=== PATIENT | female | born 1955 | race African-American/Black ===

== ENCOUNTER 2017-05-19 14:49 | Emergency (ER) | payer OTHER ==
[2017-05-19 15:14] VITALS: BMI 38.0
--- NOTE | 2017-05-19 15:17 | PDOC ---
History of Present Illness - General Chief Complaint: Back Pain Stated Complaint: BACK PAIN Time Seen by Provider: 05/19/17 15:16 Past History - Past Medical History Allergies/Adverse Reactions: Allergies Allergy/AdvReac Type Severity Reaction Status Date / Time No Known Drug Allergies Allergy Verified 05/19/17 15:13 Home Medications: Ambulatory Orders Budesonide/Formoterol Fumarate [Symbicort 80-4.5 Mcg Inhaler] 2 puff IH BID PRN #1 07/13/14 Losartan Potassium [Cozaar -] 50 mg PO DAILY 08/21/14 Lansoprazole [Prevacid] 30 mg PO ASDIR 10/04/15 Hydrocodone/Acetaminophen [Hydrocodon-Acetaminoph 7.5-325] 1 each PO Q6H #40 tablet MDD 4 03/14/16 Anemia: No Asthma: Yes Cancer: No Cardiac Disorders: No CVA: No COPD: No CHF: No Dementia: No Diabetes: Yes GI Disorders: Yes (GERD REFLUX,COLON POLYPS.H/O H.PYLORI,NON ULCER DYSPEPSIA, SENSITIVE ESOPHAG) Disorders: No HTN: Yes Hypercholesterolemia: No Liver Disease: No Seizures: No Thyroid Disease: No - Surgical History Abdominal Surgery: No Appendectomy: No Cardiac Surgery: No Cholecystectomy: No Lung Surgery: No Neurologic Surgery: Yes (SPINAL SURGERY) Orthopedic Surgery: Yes (SHOULDER SURGERY) - Immunization History Immunization Up to Date: Yes - Suicide/Smoking/Psychosocial Hx Smoking Status: No Smoking History: Never smoked Have you smoked in the past 12 months: No Number of Cigarettes Smoked Daily: 0 Cigars Per Day: 0 Information on smoking cessation initiated: No Hx Alcohol Use: No Drug/Substance Use Hx: No Substance Use Type: None Hx Substance Use Treatment: No *Physical Exam - Vital Signs Last Vital Signs Temp Pulse Resp BP Pulse Ox 97.9 F 87 18 134/79 100 05/19/17 14:49 05/19/17 14:49 05/19/17 14:49 05/19/17 14:49 05/19/17 14:49 *DC/Admit/Observation/Transfer - Referrals - Patient Instructions - Post Discharge Activity - Attestations Physician Attestion: 05/19/17 15:17 I, Dr. David Rich, attest that this document has been prepared under my direction and personally reviewed by me in its entirety. I further attest, that it accurately reflects all work, treatment, procedures and medical decision -making performed by me.
[2017-05-19] MEDS ORDERED: KETOROLAC TROMETHAMINE 60 MG/2 ML VIAL IM ONE (15:37)
--- NOTE | 2017-05-19 15:49 | PDOC ---
History of Present Illness - General Chief Complaint: Back Pain Stated Complaint: BACK PAIN Time Seen by Provider: 05/19/17 15:16 History Source: Patient - History of Present Illness Timing/Duration: 1 hour Severity: severe Associated Symptoms: denies: headaches, nausea/vomiting, weakness Past History - Past Medical History Allergies/Adverse Reactions: Allergies Allergy/AdvReac Type Severity Reaction Status Date / Time No Known Drug Allergies Allergy Verified 05/19/17 15:13 Home Medications: Ambulatory Orders Losartan Potassium [Cozaar -] 50 mg PO DAILY 08/21/14 Lansoprazole [Prevacid] 30 mg PO ASDIR 10/04/15 Cyclobenzaprine HCl [Flexeril -] 10 mg PO TID #9 tablet 05/19/17 Ibuprofen [Motrin -] 800 mg PO Q6H #30 tablet 05/19/17 Lidocaine 5% Patch [Lidoderm Patch -] 1 patch TP DAILY #7 patch 05/19/17 Anemia: No Asthma: Yes Cancer: No Cardiac Disorders: No CVA: No COPD: No CHF: No Dementia: No Diabetes: Yes GI Disorders: Yes (GERD REFLUX,COLON POLYPS.H/O H.PYLORI,NON ULCER DYSPEPSIA, SENSITIVE ESOPHAG) Disorders: No HTN: Yes Hypercholesterolemia: No Liver Disease: No Seizures: No Thyroid Disease: No - Surgical History Abdominal Surgery: No Appendectomy: No Cardiac Surgery: No Cholecystectomy: No Lung Surgery: No Neurologic Surgery: Yes (SPINAL SURGERY) Orthopedic Surgery: Yes (SHOULDER SURGERY) - Immunization History Immunization Up to Date: Yes - Suicide/Smoking/Psychosocial Hx Smoking Status: No Smoking History: Never smoked Have you smoked in the past 12 months: No Number of Cigarettes Smoked Daily: 0 Cigars Per Day: 0 Information on smoking cessation initiated: No Hx Alcohol Use: No Drug/Substance Use Hx: No Substance Use Type: None Hx Substance Use Treatment: No Review of Systems - Review of Systems Constitutional: No: Chills, Fever Musculoskeletal: Yes: Neck Pain Neurological: No: Headache, Numbness, Tingling, Weakness *Physical Exam - Vital Signs Last Vital Signs Temp Pulse Resp BP Pulse Ox 97.9 F 87 18 134/79 100 05/19/17 14:49 05/19/17 14:49 05/19/17 14:49 05/19/17 14:49 05/19/17 14:49 - Physical Exam General Appearance: Yes: Appropriately Dressed, Severe Distress HEENT: positive: Normal Voice Neck: positive: Tender (along L trapezius, pain to site w/ ROM of neck and L shoulder), Supple Respiratory/Chest: negative: Respiratory Distress Integumentary: positive: Dry, Warm Neurologic: positive: Fully Oriented, Alert, Normal Mood/Affect, Motor Strength 10/12 ED Treatment Course - RADIOLOGY Radiology Studies Ordered: Category Date Time Status SPINE-CERVICAL [RAD] Stat Radiology 05/19/17 15:37 Ordered Medical Decision Making - Medical Decision Making 05/19/17 15:38 62-year-old status post cervical surgery for herniated discs 9 months ago while in [place], here with severe neck pain. 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 States pain worse with movement of her head and neck. No upper extremity sensory changes, or weakness. Denies TALLEY, dizziness, blurry vision, n/v or focal weakness See exam M/l neck strain/spasm No red flags at this time, i.e neuropathy or dissection -pain control -XR -reassess 05/19/17 16:37 Hardware intact on XR. will continue to manage pt's pain 05/19/17 18:02 Patient reports improvement in pain. Will discharge with pain control and PMD f /u 05/19/17 18:06 *DC/Admit/Observation/Transfer Diagnosis at time of Disposition: Neck strain Qualifiers: Encounter type: initial encounter Qualified Code(s): S16.1XXA - Strain of muscle, fascia and tendon at neck level, initial encounter - Discharge Dispostion Disposition: HOME Condition at time of disposition: Improved - Prescriptions Prescriptions: Cyclobenzaprine HCl [Flexeril -] 10 mg PO TID #9 tablet Ibuprofen [Motrin -] 800 mg PO Q6H #30 tablet Lidocaine 5% Patch [Lidoderm Patch -] 1 patch TP DAILY #7 patch - Referrals Referrals: Evans Stone MD [Primary Care Provider] - - Patient Instructions Printed Discharge Instructions: DI for Neck Sprain Additional Instructions: Take medications as prescribed. If symptoms persist, follow-up with your doctor - Post Discharge Activity Forms/Work/School Notes: Back to Work
[2017-05-19] MEDS ORDERED: KETOROLAC TROMETHAMINE 60 MG/2 ML VIAL ONE (16:07)
[2017-05-19] MEDS ORDERED: CYCLOBENZAPRINE HCL 10 MG TABLET (FP) ONE (16:07)
[2017-05-19] MEDS ORDERED: CYCLOBENZAPRINE HCL 10 MG TABLET (FP) PO ONE (16:20)
[2017-05-19] MEDS ORDERED: LIDOCAINE 5% TOPICAL PATCH TP ONE (16:36)
[2017-05-19] MEDS ORDERED: LIDOCAINE 5% TOPICAL PATCH ONE (17:17)
[2017-05-19 18:23] VITALS: BP 116/73; PULSE 70; TEMP 97.8
[2017-05-20] MEDS ORDERED: CYCLOBENZAPRINE HCL 5 MG TABLET PO ONE (15:37)
== END 2017-05-19 18:23 | disposition home or self-care (01) ==
LOC: JER 14:49
PROC: 3E0233Z Introduction of Anti-inflammatory into Muscle, Percutaneous Approach (ICD-10-PCS; principal; 2017-05-19)
DX: S16.1XXA Strain of muscle, fascia and tendon at neck level, initial encounter (principal); X58.XXXA Exposure to other specified factors, initial encounter; Y93.89 Activity, other specified; Y92.9 Unspecified place or not applicable
CPT/HCPCS: 72050-TC; 99282-25

== ENCOUNTER 2017-05-21 08:33 | Day surgery (SDC) | payer OTHER ==
[2017-05-20 14:51] VITALS: BMI 38.9
[2017-05-21 09:42] VITALS: TEMP 97.5
[2017-05-21 11:01] VITALS: BP 138/71; PULSE 51
--- NOTE | 2017-05-22 16:59 | PATH ---
Surgical Pathology Report Patient Name: SHRUTHI HUBER [facility]. Rec. #: [id number] /Age/Gender: 1955 (Age: 62) / F Account: [id number] Location: U-ENDOSCOPY Taken: 05/21/2017 Received: 05/21/2017 Reported: 05/22/2017 Physicians: Jhon Blanca M.D. Specimen(s) Received BX ANTRUM Clinical History Preoperative diagnosis: Upper GI and abdominal discomfort Postoperative diagnosis: Normal EGD, normal colon Final Diagnosis STOMACH, ANTRUM, BIOPSY: GASTRIC ANTRAL MUCOSA WITH MILD CHRONIC GASTRITIS. IMMUNOHISTOCHEMICAL STAIN FOR H. PYLORI IS NEGATIVE. Electronically Signed Toshia Beard M.D. Gross Description Received in formalin, labeled "biopsy antrum" are 2 baig, irregular portions of soft tissue averaging 0.5 cm. in greatest dimension. The specimens are submitted in toto in one cassette. 05/21/201705/21/2017
== END 2017-05-21 12:31 | disposition home or self-care (01) ==
LOC: JASU-ENDO 08:33
PROVIDERS: ATTEND Internal Medicine Gastroenterology
PROC: 0DB68ZX Excision of Stomach, Via Natural or Artificial Opening Endoscopic, Diagnostic (ICD-10-PCS; 2017-05-21)
PROC: 0DJD8ZZ Inspection of Lower Intestinal Tract, Via Natural or Artificial Opening Endoscopic (ICD-10-PCS; principal; 2017-05-21 10:15)
DX: Z12.11 Encounter for screening for malignant neoplasm of colon (principal); K29.50 Unspecified chronic gastritis without bleeding
CPT/HCPCS: 43239; G0121; 88305-TC; 88342-TC

== ENCOUNTER 2017-06-28 08:00 | Inpatient (IN) | payer OTHER ==
[2017-08-02 09:45] VITALS: BMI 31.6
[2017-08-05] MEDS ORDERED: LIDOCAINE 1%/EPI 1:100000 (20 ML MULTI DOSE VIAL) ONE (07:24)
[2017-08-05] MEDS ORDERED: GENTAMICIN SO4 80 MG/2 ML VIAL ONE (07:24)
[2017-08-05] MEDS ORDERED: VANCOMYCIN 1,000 MG VIAL (RESTRICTED TO ID ONLY) ONE ×2 (07:24→08:27)
[2017-08-05] MEDS ORDERED: THROMBIN (BOVINE) 20,000 UNIT VIAL TP ONE (07:25)
[2017-08-05] MEDS ORDERED: BUPIVACAINE HCL/PF 0.5% (5MG/ML) 10 ML VIAL ONE (07:25)
[2017-08-05] MEDS ORDERED: BACITRACIN 15 GM TUBE TOPICAL OINTMENT ONE (07:26)
[2017-08-05] MEDS ORDERED: ROCURONIUM BROMIDE 50 MG/5 ML VIAL ONE ×2 (08:02→08:58)
[2017-08-05] MEDS ORDERED: MIDAZOLAM HCL 2 MG/2 ML SINGLE DOSE VIAL ONE (08:02)
[2017-08-05] MEDS ORDERED: PROPOFOL 20 ML ONE (08:02)
[2017-08-05] MEDS ORDERED: LIDOCAINE HCL/PF 2% SDV 5ML VIAL ONE (08:03)
[2017-08-05] MEDS ORDERED: DESFLURANE GAS 240 ML BOTTLE IH ONE (08:06)
[2017-08-05] MEDS ORDERED: ceFAZolin SODIUM 1 GM VIAL ONE (08:24)
[2017-08-05] MEDS ORDERED: ceFAZolin SODIUM 1 GM VIAL IVPB ONE (08:24)
[2017-08-05] MEDS ORDERED: SODIUM CHLORIDE 0.9% P/F 10 ML VIAL IJ ONE ×2 (08:24→08:27)
[2017-08-05] MEDS ORDERED: VANCOMYCIN 1,000 MG VIAL (RESTRICTED TO ID ONLY) IVPB ONE (08:30)
[2017-08-05] MEDS ORDERED: DEXAMETHASONE SOD PHOSPHATE 4 MG/1 ML VIAL ONE (08:41)
[2017-08-05] MEDS ORDERED: LIDOCAINE 1%/EPI 1:100000 (20 ML MULTI DOSE VIAL) IJ ONE (08:44)
[2017-08-05] MEDS ORDERED: THROMBIN (BOVINE) 5,000 UNIT VIAL TP ONE (09:55)
[2017-08-05] MEDS ORDERED: GELATIN, ABSORBABLE 100 EACH SPONGE TP ONE (09:56)
[2017-08-05] MEDS ORDERED: BACITRACIN 50,000 UNITS VIAL NR ONE (09:56)
[2017-08-05] MEDS ORDERED: GLYCOPYRROLATE 0.2 MG/1 ML VIAL ONE ×2 (10:08→10:48)
[2017-08-05] MEDS ORDERED: NEOSTIGMINE METHYLSULFATE 0.5 MG/ML - 10 ML MDV ONE (10:08)
[2017-08-05] MEDS ORDERED: BUPIVACAINE HCL/PF 0.5% (5MG/ML) 10 ML VIAL IJ ONE (10:20)
[2017-08-05] MEDS ORDERED: PROMETHAZINE HCL 25 MG/1 ML VIAL IVPB PRN (11:03)
[2017-08-05] MEDS ORDERED: DEXAMETHASONE SOD PHOSPHATE 4 MG/1 ML VIAL IVPUSH ONE (11:03)
[2017-08-05] MEDS ORDERED: ONDANSETRON 4 MG/2 ML VIAL IVPUSH PRN ×2 (11:03→11:13)
[2017-08-05] MEDS ORDERED: HYDROmorphone *PCA* 6MG/30ML DISP.SYRIN PCA ONE ×2 (11:09→11:10)
[2017-08-05] MEDS ORDERED: HYDROmorphone *PCA* 6MG/30ML DISP.SYRIN PCA SCH (11:15)
[2017-08-05] MEDS ORDERED: LACTATED RINGERS SOLUTION 1,000 ML IV SCH ×2 (11:15)
--- NOTE | 2017-08-05 13:36 | HP ---
Admitting History and Physical - Admission History of Present Illness: CHIEF COMPLAINT: 62 y/o afebrile female with PMH lumbar spine slipped disc, as well as cervical spine slipped disc c/o left arm and neck pain for 2 months. HISTORY OF PRESENT ILLNESS: The patient had an accident at work over 2 months ago, had an MRI of her cervical spine which revealed a slipped disc in the cervical spine with nerve impingement on the left side. She states she is currently trying to set up a surgery date with her insurance but in the meantime is in a lot of pain and is only taking motrin currently. She denies any new injury. She does report some tingling to her left hand. She is not driving home. patient took flexeril and motrin and made to follow up with PILAR- and discharged from ER she came in today for surgery seen in pacu s/p C4- T1 decompresion fusion History Source: Medical Record - Past Medical History Cardiovascular: Yes: HTN. No: AFIB, CAD, CHF, Hyperlipdemia ...LMP: 05/26/11 - Smoking History Smoking history: Never smoked Have you smoked in the past 12 months: No Aproximately how many cigarettes per day: 0 - Alcohol/Substance Use Hx Alcohol Use: No Home Medications - Allergies Allergies/Adverse Reactions: Allergies Allergy/AdvReac Type Severity Reaction Status Date / Time No Known Drug Allergies Allergy Verified 07/27/17 13:08 - Home Medications Home Medications: Ambulatory Orders Losartan Potassium [Cozaar -] 50 mg PO DAILY 08/21/14 Cyclobenzaprine HCl [Flexeril -] 10 mg PO TID PRN 08/02/17 Omeprazole Magnesium [Prilosec Otc] 20 mg PO PRN PRN 08/02/17 Family Disease History - Family Disease History Family Disease History: Heart Disease: Father Review of Systems - Review of Systems Constitutional: reports: Other (just got out of OR sedated) Physical Examination Vital Signs: Vital Signs Temperature 97.7 F 08/05/17 10:53 Pulse Rate 60 08/05/17 11:55 Respiratory Rate 16 08/05/17 11:55 Blood Pressure 136/74 08/05/17 11:55 O2 Sat by Pulse Oximetry (%) 99 08/05/17 11:55 Constitutional: Yes: Calm, Other (patient sleepy) Neck: Yes: Other (neck collar) Cardiovascular: Yes: Regular Rate and Rhythm, S1, S2 Respiratory: Yes: CTA Bilaterally Gastrointestinal: Yes: Normal Bowel Sounds, Soft Extremities: Yes: Other (scd) Problem List - Problems (1) Cervical radiculopathy Assessment/Plan: s/p c4 -t1 decompression fusion in pacu ct scan ordered shoe dresser pain pump zofran iv abx dvt ppx Code(s): M54.12 - RADICULOPATHY, CERVICAL REGION (2) HTN (hypertension) Assessment/Plan: losartan check bmp Code(s): I10 - ESSENTIAL (PRIMARY) HYPERTENSION
--- NOTE | 2017-08-05 16:22 | OP ---
Operative Note - Note: Operative Date: 08/05/17 Pre-Operative Diagnosis: cervical myelopathy, traumatic disc herniation Operation: C4-T1 laminectomies with rastafari of lordosis and reconstruction using mass lateral pedicle screws Post-Operative Diagnosis: Same as Pre-op Surgeon: Jonas Morton Real Estate Listing Consultant: Ximena Mcguire Anesthesiologist/SYSTEM ADMINISTRATION MANAGER: Stanford Chapman Anesthesia: General Estimated Blood Loss (mls): 400 Drains & Tubes with Location: j/p at c-spine Fluid Volume Replaced (mls): 900 Operative Report Dictated: Yes
--- NOTE | 2017-08-05 16:24 | SURG ---
Surgery Armature Straightener Note Armature Straightener: Ximena Mcguire PA-C Date of Service: 08/05/17 Diagnosis: cervical myelopathy with traumatic disc herniation Procedure: C4-T1 laminectomies with congregation of lordosis and reconstruction using mass lateral pedicle screws I was present for the entirety of the operative procedure. For further detail, please refer to operative report. Visit type - Case Type Case Type: Scheduled Admission - Emergency Emergency Visit: No - New patient This patient is new to me today: Yes Date on this admission: 08/05/17
[2017-08-05] MEDS ORDERED: CEFAZOLIN 1 GM/D5W 1 GM/50 ML BAG IVPB SCH (16:30)
[2017-08-05] MEDS ORDERED: CEFAZOLIN 1 GM PUSH 1 GM/10 ML DISP.SYRIN IVPUSH SCH (18:13)
[2017-08-05] MEDS: CEFAZOLIN 1 GM PUSH 1 GM/10 ML DISP.SYRIN IVPUSH SCH (18:22)
[2017-08-05] MEDS: HEPARIN NA (PORCINE) 5,000 UNITS/ML 1ML VIAL SQ SCH (18:22)
[2017-08-06] MEDS: CEFAZOLIN 1 GM PUSH 1 GM/10 ML DISP.SYRIN IVPUSH SCH ×2 (02:03→12:30)
[2017-08-06] MEDS: HEPARIN NA (PORCINE) 5,000 UNITS/ML 1ML VIAL SQ SCH ×3 (02:04→18:18)
[2017-08-06 07:57] LABS: HEMOGLOBIN 11.7 GM/dL (10.7-15.3); LYMPH % 20.8 % (8-40); MCH 29.2 pg (25.7-33.7); MCHC 33.5 g/dl (32.0-36.0); MEAN CELL VOLUME 87.1 fl (80-96); MEAN PLT VOLUME 8.5 fl (7.5-11.1); MONO % 7.8 % (3.8-10.2); NEUT % 70.4 % (42.8-82.8); PLATELET COUNT 217 K/MM3 (134-434); RBC 4.02 M/mm3 (3.60-5.2); RDW 14.4 % (11.6-15.6); WHITE BLOOD COUNT 10.3 K/mm3 (4.0-10.0)
[2017-08-06] MEDS: morphine SULFATE 4 MG/ML VIAL IVPUSH PRN ×2 (09:06→14:16)
--- NOTE | 2017-08-06 09:43 | PN ---
Progress Note, Physician - Current Medication List Current Medications: Active Medications Cyclobenzaprine HCl (Flexeril -) 10 mg PO TID PRN PRN Reason: MUSCLE SPASMS Fentanyl (Sublimaze Injection -) 50 mcg IVPUSH [id number] PRN PRN Reason: PAIN-PACU ORDER X 4 DOSES ONLY Heparin Sodium (Porcine) (Heparin -) 5,000 unit SQ Q8H-IV [place] Last Admin: 08/06/17 02:04 Dose: 5,000 unit Cefazolin Sodium (Ancef -) 1 gm in 10 mls @ 100 mls/hr IVPUSH Q8H-IV [place] Last Admin: 08/06/17 02:03 Dose: 100 mls/hr Losartan Potassium (Cozaar -) 50 mg PO DAILY [facility] Morphine Sulfate (Morphine Sulfate) 2 mg IVPUSH Q4H PRN PRN Reason: PAIN LEVEL 6-10 Last Admin: 08/06/17 09:06 Dose: 2 mg Ondansetron HCl (Zofran Injection) 4 mg IVPUSH Q4H PRN PRN Reason: NAUSEA AND/OR VOMITING Ondansetron HCl (Zofran Injection) 4 mg IVPUSH Q6H PRN PRN Reason: NAUSEA AND/OR VOMITING Promethazine HCl (Phenergan Injection -) 12.5 mg IVPB Q6H PRN PRN Reason: NAUSEA AND/OR VOMITING - Objective Vital Signs: Vital Signs Temperature 99.2 F 08/06/17 06:00 Pulse Rate 85 08/06/17 06:00 Respiratory Rate 20 08/06/17 06:00 Blood Pressure 134/73 08/06/17 06:00 O2 Sat by Pulse Oximetry (%) 100 08/05/17 15:25 Labs: CBC, BMP 08/06/17 06:30 Problem List - Problems (1) Cervical radiculopathy Assessment/Plan: s/p c4 -t1 decompression fusion ct scan ordered dc garage door installer pain pump start morphine add flexeril zofran iv abx dvt ppx Code(s): M54.12 - RADICULOPATHY, CERVICAL REGION (2) Abnormal EKG Assessment/Plan: repeat Code(s): R94.31 - ABNORMAL ELECTROCARDIOGRAM [ECG] [EKG] (3) HTN (hypertension) Assessment/Plan: monitor on cozaar Code(s): I10 - ESSENTIAL (PRIMARY) HYPERTENSION
--- NOTE | 2017-08-06 10:21 | PN ---
Progress Note, Physician Chief Complaint: day #1 s/p lumbar surgery - Current Medication List Current Medications: Active Medications Cyclobenzaprine HCl (Flexeril -) 10 mg PO TID PRN PRN Reason: MUSCLE SPASMS Docusate Sodium (Colace -) 300 mg PO HS [place] Fentanyl (Sublimaze Injection -) 50 mcg IVPUSH [id number] PRN PRN Reason: PAIN-PACU ORDER X 4 DOSES ONLY Heparin Sodium (Porcine) (Heparin -) 5,000 unit SQ Q8H-IV [place] Last Admin: 08/06/17 02:04 Dose: 5,000 unit Cefazolin Sodium (Ancef -) 1 gm in 10 mls @ 100 mls/hr IVPUSH Q8H-IV [place] Last Admin: 08/06/17 02:03 Dose: 100 mls/hr Losartan Potassium (Cozaar -) 50 mg PO DAILY [facility] Morphine Sulfate (Morphine Sulfate) 2 mg IVPUSH Q4H PRN PRN Reason: PAIN LEVEL 6-10 Last Admin: 08/06/17 09:06 Dose: 2 mg Ondansetron HCl (Zofran Injection) 4 mg IVPUSH Q4H PRN PRN Reason: NAUSEA AND/OR VOMITING Ondansetron HCl (Zofran Injection) 4 mg IVPUSH Q6H PRN PRN Reason: NAUSEA AND/OR VOMITING Promethazine HCl (Phenergan Injection -) 12.5 mg IVPB Q6H PRN PRN Reason: NAUSEA AND/OR VOMITING - Objective Vital Signs: Vital Signs Temperature 99.2 F 08/06/17 06:00 Pulse Rate 85 08/06/17 06:00 Respiratory Rate 20 08/06/17 06:00 Blood Pressure 134/73 08/06/17 06:00 O2 Sat by Pulse Oximetry (%) 100 08/05/17 15:25 Labs: CBC, BMP 08/06/17 06:30 Assessment/Plan Doing well - resting comfortably. Pain well controllled with CEMENT RAILROAD CAR LOADER- no anesthetic issues
--- NOTE | 2017-08-06 11:28 | EKG ---
Test Reason : Blood Pressure : / mmHG Vent. Rate : 062 BPM Atrial Rate : 062 BPM P-R Int : 142 ms QRS Dur : 078 ms QT Int : 354 ms P-R-T Axes : 058 009 023 degrees QTc Int : 359 ms NORMAL SINUS RHYTHM WITH SINUS ARRHYTHMIA NORMAL ECG WHEN COMPARED WITH ECG OF 31-JUL-2017 12:54, NO SIGNIFICANT CHANGE WAS FOUND Confirmed by MD Wes, Brendan ([id number]) on 08/06/2017 11:28:00 AM Referred By: Jonas Morton Confirmed By:Brendan Harvey MD
[2017-08-06] MEDS: CYCLOBENZAPRINE HCL 10 MG TABLET (FP) PO PRN (11:47)
[2017-08-06] MEDS: LOSARTAN POTASSIUM 50 MG TABLET (FP) PO SCH (11:51)
[2017-08-06] MEDS ORDERED: cefTRIAXone SODIUM 1 GM VIAL IM ONE (14:45)
[2017-08-06] MEDS: oxyCODONE HCL 5 MG TABLET PO PRN ×2 (15:35→22:48)
[2017-08-06] MEDS: DOCUSATE SODIUM 100 MG CAPSULE (FP) PO SCH (22:48)
[2017-08-07] MEDS: HEPARIN NA (PORCINE) 5,000 UNITS/ML 1ML VIAL SQ SCH ×3 (02:38→17:47)
[2017-08-07] MEDS: oxyCODONE HCL 5 MG TABLET PO PRN ×5 (03:13→21:35)
--- NOTE | 2017-08-07 08:07 | PN ---
Progress Note, Physician - Current Medication List Current Medications: Active Medications Cyclobenzaprine HCl (Flexeril -) 10 mg PO TID PRN PRN Reason: MUSCLE SPASMS Last Admin: 08/06/17 11:47 Dose: 10 mg Docusate Sodium (Colace -) 300 mg PO HS [facility] Last Admin: 08/06/17 22:48 Dose: 300 mg Fentanyl (Sublimaze Injection -) 50 mcg IVPUSH [id number] PRN PRN Reason: PAIN-PACU ORDER X 4 DOSES ONLY Heparin Sodium (Porcine) (Heparin -) 5,000 unit SQ Q8H-IV [facility] Last Admin: 08/07/17 02:38 Dose: 5,000 unit Losartan Potassium (Cozaar -) 50 mg PO DAILY [facility] Last Admin: 08/06/17 11:51 Dose: 50 mg Morphine Sulfate (Morphine Sulfate) 2 mg IVPUSH Q4H PRN PRN Reason: PAIN LEVEL 6-10 Last Admin: 08/06/17 14:16 Dose: 2 mg Ondansetron HCl (Zofran Injection) 4 mg IVPUSH Q4H PRN PRN Reason: NAUSEA AND/OR VOMITING Ondansetron HCl (Zofran Injection) 4 mg IVPUSH Q6H PRN PRN Reason: NAUSEA AND/OR VOMITING Oxycodone HCl (Roxicodone -) 10 mg PO Q4H PRN PRN Reason: PAIN LEVEL 1-5 Last Admin: 08/07/17 03:13 Dose: 10 mg Promethazine HCl (Phenergan Injection -) 12.5 mg IVPB Q6H PRN PRN Reason: NAUSEA AND/OR VOMITING - Objective Vital Signs: Vital Signs Temperature 99.3 F 08/07/17 06:00 Pulse Rate 104 H 08/07/17 06:00 Respiratory Rate 20 08/07/17 06:00 Blood Pressure 145/85 08/07/17 06:00 O2 Sat by Pulse Oximetry (%) 100 08/06/17 21:00 Cardiovascular: Yes: Regular Rate and Rhythm Respiratory: Yes: Regular, CTA Bilaterally Gastrointestinal: Yes: Normal Bowel Sounds, Soft Labs: CBC, BMP 08/06/17 06:30 Problem List - Problems (1) Cervical radiculopathy Assessment/Plan: s/p c4 -t1 decompression fusion ct scan ordered dc associate dean of students pain pump OXYCODONE add flexeril zofran OFF BAX dvt ppx PT--SNF --D/W PT Code(s): M54.12 - RADICULOPATHY, CERVICAL REGION (2) Abnormal EKG Assessment/Plan: repeat NSR Code(s): R94.31 - ABNORMAL ELECTROCARDIOGRAM [ECG] [EKG] (3) HTN (hypertension) Assessment/Plan: monitor on cozaar Code(s): I10 - ESSENTIAL (PRIMARY) HYPERTENSION Assessment/Plan PT--SNF--AGREES WITH ANGELES
--- NOTE | 2017-08-07 09:05 | PN ---
Progress Note (short form) - Note Progress Note: Patient making slow recovery after revision Cervical fusion Patient with episode of urination in bed. Ambulated briefly yesterday ALEJO output reducing PLAN d/c ALEJO pain control OOB with PT will consider discharge to rehab once medically stable
--- NOTE | 2017-08-07 09:50 | PN ---
Progress Note (short form) - Note Progress Note: Pain management HAND TWISTER discontinued over night. No complaints. Pain controlled with oral analgesics. Dept of anesthesiology will sign off care at this time.
[2017-08-07] MEDS: LOSARTAN POTASSIUM 50 MG TABLET (FP) PO SCH (10:07)
--- NOTE | 2017-08-07 11:28 | PROC ---
Procedure Note Procedure: Surgery POD #[address] Morton to d/c j/p drain. J/p drain removed with tip fully intact and 10 cc or Serosanginous d/c in bulb. Drain site clean and dry with no active d/c. Pressure dressing applied to area. posterior dressing at midline over incision, c/d/i with no d/c, surrounding tissue intact and no tracking erythema, Patient tolerated procedure well.
[2017-08-07] MEDS: ACETAMINOPHEN 325 MG TABLET (FP) PO PRN (17:45)
[2017-08-07] MEDS: DOCUSATE SODIUM 100 MG CAPSULE (FP) PO SCH (21:36)
[2017-08-08] MEDS: CYCLOBENZAPRINE HCL 10 MG TABLET (FP) PO PRN ×3 (00:50→21:02)
[2017-08-08] MEDS: ACETAMINOPHEN 325 MG TABLET (FP) PO PRN ×2 (02:17→21:02)
[2017-08-08] MEDS: oxyCODONE HCL 5 MG TABLET PO PRN ×4 (02:18→21:03)
[2017-08-08] MEDS: HEPARIN NA (PORCINE) 5,000 UNITS/ML 1ML VIAL SQ SCH ×3 (02:18→19:10)
[2017-08-08 06:44] LABS: BASO % 0.6 % (0-2.0); EOS % 1.9 % (0-4.5); HEMATOCRIT 34.2 % (32.4-45.2); LYMPH % 24.1 % (8-40); MCH 30.4 pg (25.7-33.7); MCHC 34.9 g/dl (32.0-36.0); MEAN CELL VOLUME 87.1 fl (80-96); MEAN PLT VOLUME 8.4 fl (7.5-11.1); MONO % 11.4 % (3.8-10.2); PLATELET COUNT 214 K/MM3 (134-434); RBC 3.93 M/mm3 (3.60-5.2); RDW 14.2 % (11.6-15.6); WHITE BLOOD COUNT 9.4 K/mm3 (4.0-10.0)
[2017-08-08 07:18] LABS: ALBUMIN 2.7 g/dl (3.4-5.0); ANION GAP 10 (8-16); BLOOD UREA NITROGEN 10 mg/dL (7-18); CALCIUM 8.5 mg/dL (8.5-10.1); CHLORIDE 99 mmol/L (98-107); CO2 28 mmol/L (21-32); CREATININE 0.7 mg/dL (0.55-1.02); GLUCOSE,RANDOM 105 mg/dL (74-106); POTASSIUM 3.9 mmol/L (3.5-5.1); SGOT/AST 24 U/L (15-37); SGPT/ALT 19 U/L (12-78); SODIUM 137 mmol/L (136-145)
[2017-08-08 07:19] LABS: ALK PHOS 78 U/L (45-117); BILIRUBIN,TOTAL 0.7 mg/dL (0.2-1.0); TOT PROT 6.6 g/dl (6.4-8.2)
--- NOTE | 2017-08-08 08:55 | PN ---
Progress Note, Physician - Current Medication List Current Medications: Active Medications Acetaminophen (Tylenol -) 650 mg PO Q6H PRN PRN Reason: FEVER Last Admin: 08/08/17 02:17 Dose: 650 mg Cyclobenzaprine HCl (Flexeril -) 10 mg PO TID PRN PRN Reason: MUSCLE SPASMS Last Admin: 08/08/17 00:50 Dose: 10 mg Docusate Sodium (Colace -) 300 mg PO HS [facility] Last Admin: 08/07/17 21:36 Dose: 300 mg Heparin Sodium (Porcine) (Heparin -) 5,000 unit SQ Q8H-IV [facility] Last Admin: 08/08/17 02:18 Dose: 5,000 unit Losartan Potassium (Cozaar -) 50 mg PO DAILY [facility] Last Admin: 08/07/17 10:07 Dose: 50 mg Ondansetron HCl (Zofran Injection) 4 mg IVPUSH Q4H PRN PRN Reason: NAUSEA AND/OR VOMITING Ondansetron HCl (Zofran Injection) 4 mg IVPUSH Q6H PRN PRN Reason: NAUSEA AND/OR VOMITING Oxycodone HCl (Roxicodone -) 5 mg PO Q4H PRN PRN Reason: PAIN LEVEL 6-10 Last Admin: 08/08/17 08:40 Dose: 5 mg Promethazine HCl (Phenergan Injection -) 12.5 mg IVPB Q6H PRN PRN Reason: NAUSEA AND/OR VOMITING - Objective Vital Signs: Vital Signs Temperature 99.8 F H 08/08/17 06:00 Pulse Rate 115 H 08/08/17 06:00 Respiratory Rate 20 08/08/17 06:00 Blood Pressure 129/75 08/08/17 06:00 O2 Sat by Pulse Oximetry (%) 100 08/07/17 21:00 Cardiovascular: Yes: Tachycardia, S1, S2 Respiratory: Yes: Regular, CTA Bilaterally Gastrointestinal: Yes: Normal Bowel Sounds, Soft. 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 -tachycardia now -echo -cardio -d-dimer -duplex prolonged qt -meds reviewed -cardio Code(s): R94.31 - ABNORMAL ELECTROCARDIOGRAM [ECG] [EKG] (3) HTN (hypertension) Assessment/Plan: monitor on cozaar Code(s): I10 - ESSENTIAL (PRIMARY) HYPERTENSION
[2017-08-08] MEDS: LOSARTAN POTASSIUM 50 MG TABLET (FP) PO SCH (11:21)
--- NOTE | 2017-08-08 11:39 | EKG ---
Test Reason : Blood Pressure : / mmHG Vent. Rate : 095 BPM Atrial Rate : 095 BPM P-R Int : 128 ms QRS Dur : 070 ms QT Int : 346 ms P-R-T Axes : 054 -04 016 degrees QTc Int : 434 ms NORMAL SINUS RHYTHM MODERATE VOLTAGE CRITERIA FOR LVH, MAY BE NORMAL VARIANT INFERIOR INFARCT , AGE UNDETERMINED ABNORMAL ECG WHEN COMPARED WITH ECG OF 06-AUG-2017 09:51, VENT. RATE HAS INCREASED BY 33 BPM INFERIOR INFARCT IS NOW PRESENT QT HAS LENGTHENED Confirmed by JOSE WALDEN MD ([id number]) on 08/08/2017 11:38:36 AM Referred By: Jonas Morton Confirmed By:JOSE WALDEN MD
--- NOTE | 2017-08-08 13:30 | PN ---
Progress Note, Physician Chief Complaint: ID Day 2 post op "Pain" cervical collar - Current Medication List Current Medications: Active Medications Acetaminophen (Tylenol -) 650 mg PO Q6H PRN PRN Reason: FEVER Last Admin: 08/08/17 02:17 Dose: 650 mg Cyclobenzaprine HCl (Flexeril -) 10 mg PO TID PRN PRN Reason: MUSCLE SPASMS Last Admin: 08/08/17 00:50 Dose: 10 mg Docusate Sodium (Colace -) 300 mg PO HS [facility] Last Admin: 08/07/17 21:36 Dose: 300 mg Heparin Sodium (Porcine) (Heparin -) 5,000 unit SQ Q8H-IV [facility] Last Admin: 08/08/17 11:21 Dose: 5,000 unit Losartan Potassium (Cozaar -) 50 mg PO DAILY [facility] Last Admin: 08/08/17 11:21 Dose: 50 mg Oxycodone HCl (Roxicodone -) 5 mg PO Q4H PRN PRN Reason: PAIN LEVEL 6-10 Last Admin: 08/08/17 08:40 Dose: 5 mg - Objective Vital Signs: Vital Signs Temperature 98.6 F 08/08/17 10:00 Pulse Rate 84 08/08/17 11:53 Respiratory Rate 18 08/08/17 10:00 Blood Pressure 121/68 08/08/17 10:00 O2 Sat by Pulse Oximetry (%) 100 08/07/17 21:00 Cardiovascular: Yes: S1, S2 Respiratory: Yes: WNL, Regular, CTA Bilaterally Labs: CBC, BMP 08/08/17 06:15 08/08/17 06:15 Problem List - Problems (1) Postoperative fever Code(s): R50.82 - POSTPROCEDURAL FEVER Assessment/Plan Microbiology Laboratory Tests 08/08/17 08/08/17 06:15 06:15 WBC 9.4 Hgb 12.0 Plt Count 214 BUN 10 Creatinine 0.7 Assessment Atalectasis with fever post op Plan Cultures pending Appears stable / No antibiotics Yariel TEJADA
--- NOTE | 2017-08-08 14:37 | EKG ---
Test Reason : Blood Pressure : / mmHG Vent. Rate : 092 BPM Atrial Rate : 092 BPM P-R Int : 130 ms QRS Dur : 082 ms QT Int : 360 ms P-R-T Axes : 058 -07 010 degrees QTc Int : 445 ms NORMAL SINUS RHYTHM MODERATE VOLTAGE CRITERIA FOR LVH, MAY BE NORMAL VARIANT INFERIOR INFARCT (CITED ON OR BEFORE 08-AUG-2017) ABNORMAL ECG WHEN COMPARED WITH ECG OF 08-AUG-2017 09:38, NO SIGNIFICANT CHANGE WAS FOUND Confirmed by JOSE WALDEN MD ([id number]) on 08/08/2017 2:37:13 PM Referred By: Jonas Morton Confirmed By:JOSE WALDEN MD
[2017-08-08 14:41] LABS: URINE APPEARANCE CLOUDY; URINE BILIRUBIN NEGATIVE (NEGATIVE); URINE BLOOD NEGATIVE (NEGATIVE); URINE COLOR AMBER; URINE GLUCOSE (UA) NEGATIVE (NEGATIVE); URINE KETONE NEGATIVE (NEGATIVE); URINE NITRITE NEGATIVE (NEGATIVE); URINE UROBILINOGEN NEGATIVE mg/dL (0.2-1.0)
[2017-08-08 14:46] LABS: URINE LEUK ESTERASE 2+ (NEGATIVE); URINE PROTEIN 1+ (NEGATIVE)
--- NOTE | 2017-08-08 15:25 | CON.CARD ---
Consult Consult Specialty:: Cardiology Reason for Consultation:: Cardiology Consult - History of Present Illness Chief Complaint: No cardiac symptoms at this time History of Present Illness: This is a 62 year old female with a PMH of lumbar and cervical slipped discs. She is S/P C4-T1 laminectomies performed on 08/05/17. She denies cardiac symptoms at this time. EKG - 08/08/17 NSR at 92 BPM with normal intervals, normal axis, and NSSTTW changes. Inferior Q-waves noted (seen prior) Troponin negative Echocardiogram 08/08/17 - Normal LV size and function. Normal RV size nd function. Trace TR. - Past Medical History Cardio/Vascular: Yes: HTN. No: AFIB, CAD, CHF, Hyperlipdemia ...LMP: 05/26/11 - Alcohol/Substance Use Hx Alcohol Use: No - Smoking History Smoking history: Never smoked Have you smoked in the past 12 months: No Aproximately how many cigarettes per day: 0 Home Medications - Allergies Allergies/Adverse Reactions: Allergies Allergy/AdvReac Type Severity Reaction Status Date / Time No Known Drug Allergies Allergy Verified 07/27/17 13:08 - Home Medications Home Medications: Ambulatory Orders Losartan Potassium [Cozaar -] 50 mg PO DAILY 08/21/14 Cyclobenzaprine HCl [Flexeril -] 10 mg PO TID PRN 08/02/17 Omeprazole Magnesium [Prilosec Otc] 20 mg PO PRN PRN 08/02/17 Family Disease History - Family Disease History Family Disease History: Heart Disease: Father Review of Systems Findings/Remarks: As per HPI Vital Signs: Vital Signs Temperature 98.3 F 08/08/17 14:37 Pulse Rate 86 08/08/17 14:37 Respiratory Rate 18 08/08/17 14:37 Blood Pressure 97/62 08/08/17 14:37 O2 Sat by Pulse Oximetry (%) 100 08/07/17 21:00 Constitutional: Yes: No Distress (Neck collar) HENT: Yes: WNL Respiratory: Yes: CTA Bilaterally Gastrointestinal: Yes: Soft Cardiovascular: Yes: Regular Rate and Rhythm (NL S1S2, no MRG) Extremities: Yes: WNL Edema: No Neurological: Yes: Alert, Oriented (Non focal) - Other Data Labs, Other Data: CBC, BMP 08/08/17 06:15 08/08/17 06:15 Troponin, BNP 08/08/17 08/08/17 06:15 13:00 Troponin I < 0.02 < 0.02 Troponin, BNP 08/08/17 08/08/17 06:15 13:00 Troponin I < 0.02 < 0.02 Assessment/Plan Cardiovascular: S/P C4-T1 laminectomies performed on 08/05/17. She denies cardiac symptoms at this time. EKG - 08/08/17 NSR at 92 BPM with normal intervals, normal axis, and NSSTTW changes. Inferior Q-waves noted (seen prior) Troponin negative Echocardiogram 08/08/17 - Normal LV size and function. Normal RV size nd function. Trace TR. Presently stable from a cardiac standpoint.
[2017-08-08 15:42] LABS: EPI CELLS MANY /HPF (FEW); URINE MUCUS MANY
[2017-08-08] MEDS: DOCUSATE SODIUM 100 MG CAPSULE (FP) PO SCH (21:04)
[2017-08-09] MEDS: HEPARIN NA (PORCINE) 5,000 UNITS/ML 1ML VIAL SQ SCH ×4 (00:30→19:59)
--- NOTE | 2017-08-09 07:59 | PN ---
Progress Note, Physician Chief Complaint: ID Post op pain noted Afebrile Temps down Off antibiotics - Current Medication List Current Medications: Active Medications Acetaminophen (Tylenol -) 650 mg PO Q6H PRN PRN Reason: FEVER Last Admin: 08/08/17 21:02 Dose: 650 mg Cyclobenzaprine HCl (Flexeril -) 10 mg PO TID PRN PRN Reason: MUSCLE SPASMS Last Admin: 08/08/17 21:02 Dose: 10 mg Docusate Sodium (Colace -) 300 mg PO HS [facility] Last Admin: 08/08/17 21:04 Dose: 300 mg Heparin Sodium (Porcine) (Heparin -) 5,000 unit SQ Q8H-IV [facility] Last Admin: 08/09/17 02:00 Dose: 5,000 unit Losartan Potassium (Cozaar -) 50 mg PO DAILY [facility] Last Admin: 08/08/17 11:21 Dose: 50 mg Oxycodone HCl (Roxicodone -) 5 mg PO Q4H PRN PRN Reason: PAIN LEVEL 6-10 Last Admin: 08/08/17 21:03 Dose: 5 mg - Objective Vital Signs: Vital Signs Temperature 98.4 F 08/09/17 06:00 Pulse Rate 88 08/09/17 06:00 Respiratory Rate 18 08/09/17 06:00 Blood Pressure 97/52 08/09/17 06:00 O2 Sat by Pulse Oximetry (%) 98 08/08/17 21:00 Constitutional: Yes: No Distress Neck: Yes: Other (Collar) Cardiovascular: Yes: Regular Rate and Rhythm, S1, S2. No: Murmur Respiratory: Yes: WNL, Regular, CTA Bilaterally. No: Rales, Rhonchi Gastrointestinal: Yes: Soft. No: Tenderness Labs: CBC, BMP 08/08/17 06:15 08/08/17 06:15 Problem List - Problems (1) Postoperative fever Code(s): R50.82 - POSTPROCEDURAL FEVER Assessment/Plan Microbiology 08/08/17 03:45 Blood - Peripheral Venous Blood Culture - Preliminary NO GROWTH OBTAINED AFTER 24 HOURS, INCUBATION TO CONTINUE FOR 4 DAYS. 08/08/17 03:45 Blood - Peripheral Venous Blood Culture - Preliminary NO GROWTH OBTAINED AFTER 24 HOURS, INCUBATION TO CONTINUE FOR 4 DAYS. Laboratory Tests 08/08/17 06:15 WBC 9.4 Hgb 12.0 Plt Count 214 Assessment Day 4 post op spinal surgery Fever down from atalectasis seen on chest xray I gave no antibiotics Plan Discharge planning Recall as needed Yariel TEJADA
[2017-08-09] MEDS: oxyCODONE HCL 5 MG TABLET PO PRN ×2 (08:09→16:25)
[2017-08-09] MEDS: CYCLOBENZAPRINE HCL 10 MG TABLET (FP) PO PRN (11:01)
[2017-08-09] MEDS: LOSARTAN POTASSIUM 50 MG TABLET (FP) PO SCH (11:01)
--- NOTE | 2017-08-09 11:02 | CONS ---
DATE OF CONSULTATION: HISTORY: This is a 62-year-old female whom I am asked to see postoperative spinal cervical surgery for evaluation of fevers. She was electively admitted for surgery and on August 05 was taken to the operating room with preoperative diagnosis of cervical myelopathy and traumatic disk herniation. The surgery, as per the operative note, C4-T1 laminectomies with reconstruction using mass lateral pedicle screws. The following day, the patient developed fever and by earlier this morning had reached 101.9. Two sets of blood cultures were drawn and currently pending. A urinalysis has not yet been collected. Chest x-ray showed prominent atelectasis in the left lung base. The patient denies any shortness of breath, and her lung O2 saturations are normal. She has no pleuritic chest pain, abdominal pain, or urinary complaints. ALLERGIES: She has no known allergies. CURRENT MEDICATIONS: Include Cozaar for hypertension, Flexeril, Roxicodone. REVIEW OF SYSTEMS: All systems reviewed and noncontributory. PHYSICAL EXAMINATION: Vital Signs: She is in no acute distress with temperature currently 98.6, pulse 84, blood pressure 128/68, respirations 18. Neck: With a cervical collar. Lungs: Clear. Heart: S1, S2. Tachycardic. Regular rhythm. Abdomen: Soft and nontender. Extremities: Without clubbing, cyanosis, or edema. A white count is 9.4, hemoglobin 12, platelets 214 with a normal differential. Chemistries within normal limits. ASSESSMENT: A 62-year-old female day 2 postoperative extensive cervical surgery with laminectomies and placement of spinal hardware. Immediate postoperative fever on day 1 intermittent with no signs of indication of sepsis including a normal white count. Blood cultures have been sent. At this point, she is clinically stable. Her fever most likely due to lung atelectasis. PLAN: Would encourage incentive spirometry. Send a urinalysis and urine culture along with the blood cultures and observe her off of antibiotic at this time. PILAR TAMAYO M.D. [id number]
--- NOTE | 2017-08-09 11:15 | PN ---
Progress Note (short form) - Note Progress Note: Surgery POD #4 C4-T1 laminectomies with sikh of lordosis and posterior fusion Patient seen and examined at bedside c/o pain over incision site and left UE paresthesias which she had pre-operatively but has intensified during the post op course. She is tolerating her diet and has mild nausea but no vomiting. She is voiding and passing gas but no BM yet. She denies any subjective fevers today , CP, SOB or headaches. Shew has been ambulating with assistance and OOB to chair. The patient went for Chest CT this morning to r/o PE as she had an elevated D-dimer and recent fevers. Vital Signs Temp 98.4 F 0318 06:00 Pulse 88 08/09/17 06:00 Resp 18 08/09/17 06:00 BP 97/52 18 06:00 Pulse Ox 98 08/08/17 21:00 Intake & Output 03/18 18 08/09/17 11:59 23:59 11:59 Other: Voiding Method Bedpan Toilet # Unmeasured Voids Void 2 Bowel Movement No CBC, BMP 08/08/17 06:15 08/08/17 06:[address] revealed: B/l lower lobe, lingunial and right upper lobe discoid atelectasis No evidence of PE PE: A&Ox3, NAD unlabored resp on RA neck incision, C/D/I with jose m insitu and dermabond. Surrounding tissue with no evidence of erythema, edema, collection or fluctuance. drain site healing well with no d/c. Left UE patient unable to cooperate with exam 2/2 pain. Weak on hand payroll lead which appears to be pain blocking Right UE with 5/5 payroll lead strength B/l LE compartments, soft, supple and non-tender with +2 pedal pulses and 5/5 dorsi/plantar flexion Problem List - Problems (1) Cervical radiculopathy Assessment/Plan: POD # 4 multilevel cervical fusion with post op fevers POD #3 and elevated d- dimer and creatine Kinase Cardiology consult states patient is stable from cardiac standpoint and Chest CT revealed stable atelectasis with no evidence of PE. Patient currently afebrile. Plan: 1) OOB with PT 2) continue DVT prophylaxis with scds and sq heparin 3) C-collar 23hours/day 4) d/c planning Code(s): M54.12 - RADICULOPATHY, CERVICAL REGION
--- NOTE | 2017-08-09 11:26 | DS ---
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 She states she is currently trying to set up a surgery date with her insurance but in the meantime is in a lot of pain and is only taking motrin currently. She denies any new injury. She does report some tingling to her left hand. She is not driving home. patient took flexeril and motrin and made to follow up with [facility]- and discharged from ER she came in today for surgery seen in pacu s/p C4- T1 decompresion fusion History Source: Medical Record - Past Medical History Cardiovascular: Yes: HTN. 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 -tachycardia now -echo -cardio -d-dimer high--duplex and cta neg -duplex neg -prolonged qt -meds reviewed -cardio noted Code(s): R94.31 - ABNORMAL ELECTROCARDIOGRAM [ECG] [EKG] (3) HTN (hypertension) Assessment/Plan: monitor on coar Code(s): I10 - ESSENTIAL (PRIMARY) HYPERTENSION - Instructions Diet, Activity, Other Instructions: Dr. Morton's Discharge Instructions Post Operative Instructions Physical activity Resume your normal everyday activity as tolerated no heavy lifting or exercise until seen by your surgeon. You may walk unlimited amounts of and climb stairs. You may resume driving the car when you feel safe and comfortable behind the wheel and you are no longer wearing your brace. Do not operate a vehicle while taking narcotic medication. Wound care If you have a bandage, leave it on, and keep dry for 48 - 72 hours. After that time discard the outer bandage. If there are tapes on the skin under the outer bandage, leave them in place. They will peel off in the next 7 to 10 days. Do Not peel them off. You may shower 2 days after surgery however, do not submerge the incision. If there are tapes present on the skin, they can get wet. Diet There are no dietary restrictions. Eat healthy, high-fiber foods. Drink 6 to 8 glasses of liquid each day. This will assist in keeping your bowels are regular. Pain management You may take Tylenol or acetaminophen. Any pain prescription medication ordered should be taken as prescribed for moderate to severe pain. Call Dr. Morton for any of the following: Severe pain not relieved by medication Fever of 101 or higher Excessive bleeding or drainage on dressing Inability to urinate Any chest pain or shortness of breath seek emergency care. Call the office to confirm a post operative appointment 7-10 days post op. Disposition: RETIREMENT FACILITY - Home Medications Comprehensive Discharge Medication List: Ambulatory Orders Omeprazole Magnesium [Prilosec Otc] 20 mg PO PRN PRN 08/02/17 Acetaminophen [Tylenol .Regular Strength -] 650 mg PO Q6H PRN tablet 08/09/17 Cyclobenzaprine HCl [Flexeril -] 10 mg PO TID PRN tablet 08/09/17 Docusate Sodium [Colace -] 300 mg PO HS capsule 08/09/17 Heparin - 5,000 unit SQ Q8H-IV vial 08/09/17 Losartan Potassium [Cozaar -] 50 mg PO DAILY tablet 08/09/17 oxyCODONE HCL [Roxicodone -] 5 mg PO Q4H PRN tablet MDD 4 08/09/17
[2017-08-09] MEDS: DOCUSATE SODIUM 100 MG CAPSULE (FP) PO SCH (22:25)
[2017-08-09] MEDS: CYCLOBENZAPRINE HCL 10 MG TABLET (FP) PO SCH (22:25)
[2017-08-09] MEDS: PANTOPRAZOLE 40 MG TABLET (FP) PO SCH (22:25)
[2017-08-09] MEDS: KETOROLAC TROMETHAMINE 10 MG TABLET PO SCH (22:25)
[2017-08-10] MEDS: HEPARIN NA (PORCINE) 5,000 UNITS/ML 1ML VIAL SQ SCH ×3 (02:21→17:25)
[2017-08-10] MEDS: oxyCODONE HCL 5 MG TABLET PO PRN (02:24)
[2017-08-10] MEDS: ACETAMINOPHEN 325 MG TABLET (FP) PO PRN ×2 (02:25→18:52)
[2017-08-10] MEDS: KETOROLAC TROMETHAMINE 10 MG TABLET PO SCH ×3 (05:45→22:19)
[2017-08-10] MEDS ORDERED: PT OWN MED DRAWER 7, Y5N ONE ×4 (09:56→22:18)
[2017-08-10] MEDS: CYCLOBENZAPRINE HCL 10 MG TABLET (FP) PO SCH ×2 (09:58→22:21)
[2017-08-10] MEDS: PANTOPRAZOLE 40 MG TABLET (FP) PO SCH ×3 (09:58→22:29)
[2017-08-10] MEDS: LOSARTAN POTASSIUM 50 MG TABLET (FP) PO SCH (09:58)
--- NOTE | 2017-08-10 10:54 | PN ---
Progress Note, Physician History of Present Illness: NAD afebrile seen by NS, ID and cardiology awaiting discharge to [facility] - Current Medication List Current Medications: Active Medications Acetaminophen (Tylenol -) 650 mg PO Q6H PRN PRN Reason: FEVER Last Admin: 08/10/17 02:25 Dose: 650 mg Cyclobenzaprine HCl (Flexeril -) 10 mg PO BID [facility] Last Admin: 08/10/17 09:58 Dose: 10 mg Docusate Sodium (Colace -) 300 mg PO HS [facility] Last Admin: 08/09/17 22:25 Dose: 300 mg Heparin Sodium (Porcine) (Heparin -) 5,000 unit SQ Q8H-IV [facility] Last Admin: 08/10/17 09:58 Dose: 5,000 unit Ketorolac Tromethamine (Toradol) 10 mg PO TID [facility] Stop: 08/14/17 21:59 Last Admin: 08/10/17 05:45 Dose: Not Given Losartan Potassium (Cozaar -) 50 mg PO DAILY [facility] Last Admin: 08/10/17 09:58 Dose: 50 mg Pantoprazole Sodium (Protonix -) 40 mg PO BID [facility] Last Admin: 08/10/17 09:58 Dose: 40 mg - Objective Vital Signs: Vital Signs Temperature 97.3 F L 08/10/17 06:00 Pulse Rate 72 08/10/17 06:00 Respiratory Rate 18 08/10/17 06:00 Blood Pressure 114/56 08/10/17 06:00 O2 Sat by Pulse Oximetry (%) 98 08/09/17 21:00 Constitutional: Yes: Well Nourished, No Distress, Calm Cardiovascular: Yes: Regular Rate and Rhythm Respiratory: Yes: Regular Gastrointestinal: Yes: Normal Bowel Sounds, Soft Neurological: Yes: Alert, Oriented Psychiatric: Yes: Alert, Oriented Labs: CBC, BMP 08/08/17 06:15 08/08/17 06:15 Problem List - Problems (1) Elevated d-dimer Assessment/Plan: -U/S doppler BLLE and CTA negative -on AC Code(s): R79.89 - OTHER SPECIFIED ABNORMAL FINDINGS OF BLOOD CHEMISTRY (2) Abnormal EKG Assessment/Plan: -seen by cardiology -no intervention recommended Code(s): R94.31 - ABNORMAL ELECTROCARDIOGRAM [ECG] [EKG] (3) Cervical radiculopathy Assessment/Plan: s/p c4 -t1 decompression fusion 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
--- NOTE | 2017-08-10 16:22 | PN ---
Progress Note (short form) - Note Progress Note: Patient making slow recovery from Revision Cervical Fusion. Collar in place. Patient ambulating with assistance. Dressing clean, dry and intact. Patient should be ready for Discharge to SNF from surgical standpoint. All questions answered.
[2017-08-10] MEDS: DOCUSATE SODIUM 100 MG CAPSULE (FP) PO SCH (22:19)
[2017-08-11] MEDS: HEPARIN NA (PORCINE) 5,000 UNITS/ML 1ML VIAL SQ SCH ×3 (02:10→17:40)
[2017-08-11] MEDS ORDERED: PT OWN MED DRAWER 7, Y5N ONE ×2 (06:50→21:47)
[2017-08-11] MEDS: PANTOPRAZOLE 40 MG TABLET (FP) PO SCH ×2 (09:44→21:53)
[2017-08-11] MEDS: LOSARTAN POTASSIUM 50 MG TABLET (FP) PO SCH (09:44)
[2017-08-11] MEDS: CYCLOBENZAPRINE HCL 10 MG TABLET (FP) PO SCH ×2 (09:44→21:46)
[2017-08-11] MEDS: KETOROLAC TROMETHAMINE 10 MG TABLET PO SCH ×3 (09:45→21:47)
--- NOTE | 2017-08-11 10:57 | PN ---
Progress Note (short form) - Note Progress Note: Patient resting comfortably. Reports that she was able to ambulate in [place] earlier. Pain abating. Patient is ready for discharge to rehabilitation from Neurosurgery standpoint. Skin clips can be removed after September 04 either at SNF/ Rehab or in my office.
--- NOTE | 2017-08-11 12:00 | PN ---
Progress Note, Physician History of Present Illness: NAD afebrile seen by NS, ID and cardiology awaiting discharge to [facility] - Current Medication List Current Medications: Active Medications Acetaminophen (Tylenol -) 650 mg PO Q6H PRN PRN Reason: FEVER Last Admin: 08/10/17 18:52 Dose: 650 mg Cyclobenzaprine HCl (Flexeril -) 10 mg PO BID [facility] Last Admin: 08/11/17 09:44 Dose: 10 mg Docusate Sodium (Colace -) 300 mg PO HS [facility] Last Admin: 08/10/17 22:19 Dose: 300 mg Heparin Sodium (Porcine) (Heparin -) 5,000 unit SQ Q8H-IV [facility] Last Admin: 08/11/17 09:44 Dose: 5,000 unit Ketorolac Tromethamine (Toradol) 10 mg PO TID [facility] Stop: 08/14/17 21:59 Last Admin: 08/11/17 09:45 Dose: 10 mg Losartan Potassium (Cozaar -) 50 mg PO DAILY [facility] Last Admin: 08/11/17 09:44 Dose: 50 mg Pantoprazole Sodium (Protonix -) 40 mg PO BID [facility] Last Admin: 08/11/17 09:44 Dose: 40 mg - Objective Vital Signs: Vital Signs Temperature 100.7 F H 08/11/17 08:00 Pulse Rate 98 H 08/11/17 08:00 Respiratory Rate 18 08/11/17 09:00 Blood Pressure 104/58 08/11/17 08:00 O2 Sat by Pulse Oximetry (%) 98 08/11/17 09:00 Constitutional: Yes: Well Nourished, No Distress, Calm Cardiovascular: Yes: Regular Rate and Rhythm Respiratory: Yes: Regular Gastrointestinal: Yes: Normal Bowel Sounds, Soft Neurological: Yes: Alert, Oriented Psychiatric: Yes: Alert, Oriented Labs: CBC, BMP 08/08/17 06:15 08/08/17 06:15 Problem List - Problems (1) Elevated d-dimer Assessment/Plan: -U/S doppler BLLE and CTA negative -on AC Code(s): R79.89 - OTHER SPECIFIED ABNORMAL FINDINGS OF BLOOD CHEMISTRY (2) Abnormal EKG Assessment/Plan: -seen by cardiology -no intervention recommended Code(s): R94.31 - ABNORMAL ELECTROCARDIOGRAM [ECG] [EKG] (3) Cervical radiculopathy Assessment/Plan: s/p c4 -t1 decompression fusion 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
[2017-08-11] MEDS: ACETAMINOPHEN 325 MG TABLET (FP) PO PRN (14:21)
[2017-08-11] MEDS: DOCUSATE SODIUM 100 MG CAPSULE (FP) PO SCH (21:53)
[2017-08-12] MEDS: HEPARIN NA (PORCINE) 5,000 UNITS/ML 1ML VIAL SQ SCH ×4 (02:38→23:04)
[2017-08-12] MEDS ORDERED: PT OWN MED DRAWER 7, Y5N ONE (05:26)
[2017-08-12] MEDS: KETOROLAC TROMETHAMINE 10 MG TABLET PO SCH ×3 (06:35→23:05)
[2017-08-12] MEDS: CYCLOBENZAPRINE HCL 10 MG TABLET (FP) PO SCH ×2 (10:02→23:04)
[2017-08-12] MEDS: PANTOPRAZOLE 40 MG TABLET (FP) PO SCH ×2 (10:02→23:04)
[2017-08-12] MEDS: LOSARTAN POTASSIUM 50 MG TABLET (FP) PO SCH (10:02)
--- NOTE | 2017-08-12 10:21 | DS ---
Physical Examination Vital Signs: Vital Signs Temperature 98.6 F 08/12/17 07:07 Pulse Rate 86 08/12/17 07:07 Respiratory Rate 20 08/12/17 07:07 Blood Pressure 135/75 08/12/17 07:07 O2 Sat by Pulse Oximetry (%) 98 08/11/17 21:00 Constitutional: Yes: Calm Neck: Yes: Other (neck collar) Cardiovascular: Yes: Regular Rate and Rhythm, S1, S2 Respiratory: Yes: CTA Bilaterally Gastrointestinal: Yes: Normal Bowel Sounds, Soft Edema: No Neurological: Yes: Alert, Oriented Labs: CBC, BMP 08/08/17 06:15 08/08/17 06:15 Discharge Summary Reason For Visit: CERVICAL SPONDYLOTIC MYELOPATHY/TRAUMATIC DISC HER Current Active Problems Elevated d-dimer (Acute) Postoperative fever (Acute) Hospital Course: History of Present Illness: CHIEF COMPLAINT: 62 y/o afebrile female with PMH lumbar spine slipped disc, as well as cervical spine slipped disc c/o left arm and neck pain for 2 months. HISTORY OF PRESENT ILLNESS: The patient had an accident at work over 2 months ago, had an MRI of her cervical spine which revealed a slipped disc in the cervical spine with nerve impingement on the left side. She states she is currently trying to set up a surgery date with her insurance but in the meantime is in a lot of pain and is only taking motrin currently. She denies any new injury. She does report some tingling to her left hand. She is not driving home. patient took flexeril and motrin and made to follow up with [facility]- and discharged from ER she came in today for surgery seen in pacu s/p C4- T1 decompresion fusion History Source: Medical Record - Past Medical History Cardiovascular: Yes: HTN. No: AFIB, CAD, CHF, Hyperlipdemia ...LMP: 05/26/11 - Smoking History Smoking history: Never smoked Have you smoked in the past 12 months: No Aproximately how many cigarettes per day: 0 ptient during hospital stay :had doppler of legs no evidence of DVT and CTA no evidence of PE either surgical skin clipsa can be removed after september 04 in neurosurgery office. Condition: Improved - Instructions Diet, Activity, Other Instructions: Dr. Morton's Discharge Instructions Post Operative Instructions Physical activity Resume your normal everyday activity as tolerated no heavy lifting or exercise until seen by your surgeon. You may walk unlimited amounts of and climb stairs. You may resume driving the car when you feel safe and comfortable behind the wheel and you are no longer wearing your brace. Do not operate a vehicle while taking narcotic medication. Wound care If you have a bandage, leave it on, and keep dry for 48 - 72 hours. After that time discard the outer bandage. If there are tapes on the skin under the outer bandage, leave them in place. They will peel off in the next 7 to 10 days. Do Not peel them off. You may shower 2 days after surgery however, do not submerge the incision. If there are tapes present on the skin, they can get wet. Diet There are no dietary restrictions. Eat healthy, high-fiber foods. Drink 6 to 8 glasses of liquid each day. This will assist in keeping your bowels are regular. Pain management You may take Tylenol or acetaminophen. Any pain prescription medication ordered should be taken as prescribed for moderate to severe pain. Call Dr. Morton for any of the following: Severe pain not relieved by medication Fever of 101 or higher Excessive bleeding or drainage on dressing Inability to urinate Any chest pain or shortness of breath seek emergency care. Call the office to confirm a post operative appointment 7-10 days post op. 1) OOB with PT 2) continue DVT prophylaxis with scds and sq heparin 3) C-collar 23hours/day 4) skin clips can be removed at the office after september 04 Disposition: [facility] - Home Medications Comprehensive Discharge Medication List: Ambulatory Orders Omeprazole Magnesium [Prilosec Otc] 20 mg PO PRN PRN 08/02/17 Acetaminophen [Tylenol .Regular Strength -] 650 mg PO Q6H PRN tablet 08/09/17 Cyclobenzaprine HCl [Flexeril -] 10 mg PO TID PRN tablet 08/09/17 Docusate Sodium [Colace -] 300 mg PO HS capsule 08/09/17 Heparin - 5,000 unit SQ Q8H-IV vial 08/09/17 Losartan Potassium [Cozaar -] 50 mg PO DAILY tablet 08/09/17 oxyCODONE HCL [Roxicodone -] 5 mg PO Q4H PRN tablet MDD 4 08/09/17
[2017-08-12] MEDS: POLYETHYLENE GLYCOL 3350 119 GM BTL PO SCH (12:39)
[2017-08-12] MEDS: ACETAMINOPHEN 325 MG TABLET (FP) PO PRN (18:33)
[2017-08-12] MEDS: DOCUSATE SODIUM 100 MG CAPSULE (FP) PO SCH (23:03)
[2017-08-13] MEDS: KETOROLAC TROMETHAMINE 10 MG TABLET PO SCH (06:22)
[2017-08-13] MEDS ORDERED: PT OWN MED DRAWER 7, Y5N ONE (09:15)
[2017-08-13] MEDS: PANTOPRAZOLE 40 MG TABLET (FP) PO SCH (09:16)
[2017-08-13] MEDS: CYCLOBENZAPRINE HCL 10 MG TABLET (FP) PO SCH (09:16)
[2017-08-13] MEDS: LOSARTAN POTASSIUM 50 MG TABLET (FP) PO SCH (09:16)
[2017-08-13] MEDS: HEPARIN NA (PORCINE) 5,000 UNITS/ML 1ML VIAL SQ SCH (09:16)
[2017-08-13] MEDS: POLYETHYLENE GLYCOL 3350 119 GM BTL PO SCH (09:17)
[2017-08-13] MEDS: ACETAMINOPHEN 325 MG TABLET (FP) PO PRN (09:17)
[2017-08-13 11:29] VITALS: BP 130/68; PULSE 95; TEMP 98.4
== END 2017-08-13 09:31 | DRG 321 ==
LOC: EDSTATUS 08:00 → JSAMEDAYSX 08-05 05:05 → J8W 08-05 15:07
PROVIDERS: ADMIT Family Medicine; ATTEND Neurological Surgery
PROC: 0RG1071 Fusion of Cervical Vertebral Joint with Autologous Tissue Substitute, Posterior Approach, Posterior Column, Open Approach (ICD-10-PCS; 2017-08-05)
PROC: 0JX70ZB Transfer Back Subcutaneous Tissue and Fascia with Skin and Subcutaneous Tissue, Open Approach (ICD-10-PCS; 2017-08-05)
PROC: 00BW0ZZ Excision of Cervical Spinal Cord, Open Approach (ICD-10-PCS; principal; 2017-08-05 08:00)
PROC: 0J973ZZ Drainage of Back Subcutaneous Tissue and Fascia, Percutaneous Approach (ICD-10-PCS; 2017-08-07)
DX: M50.021 Cervical disc disorder at C4-C5 level with myelopathy (principal); M40.202 Unspecified kyphosis, cervical region; M54.12 Radiculopathy, cervical region; I10 Essential (primary) hypertension; M50.023 Cervical disc disorder at C6-C7 level with myelopathy
CPT/HCPCS: 36415; 71045-TC-FY; 71275-TC; 72125-TC; 76000-TC-FY; 80053; 81003; 81015; 82550; 82553; 84443; 84484; 85025; 85379; 86850; 86900; 86901; 87040; 87086; 93005; 93010; 93306-TC; 93970-TC; 94760; 97116-GP; 97161-GP; J1170; J1644

== ENCOUNTER 2017-07-27 12:57 | Emergency (ER) | payer OTHER ==
[2017-07-27 13:14] VITALS: BP 135/81; PULSE 78; TEMP 98.1; BMI 37.8
--- NOTE | 2017-07-27 14:05 | PDOC ---
History of Present Illness - General Chief Complaint: Pain, Acute Stated Complaint: LEFT SIDE BODY PAIN Time Seen by Provider: 07/27/17 14:03 History Source: Patient Exam Limitations: No Limitations - History of Present Illness Initial Comments: CHIEF COMPLAINT: 62 y/o afebrile female with PMH lumbar spine slipped disc, as well as cervical spine slipped disc c/o left arm and neck pain for 2 months. HISTORY OF PRESENT ILLNESS: The patient had an accident at work over 2 months ago, had an MRI of her cervical spine which revealed a slipped disc in the cervical spine with nerve impingement on the left side. She states she is currently trying to set up a surgery date with her insurance but in the meantime is in a lot of pain and is only taking motrin currently. She denies any new injury. She does report some tingling to her left hand. She is not driving home. Past History - Past Medical History Allergies/Adverse Reactions: Allergies Allergy/AdvReac Type Severity Reaction Status Date / Time No Known Drug Allergies Allergy Verified 07/27/17 13:08 Home Medications: Ambulatory Orders Losartan Potassium [Cozaar -] 50 mg PO DAILY 08/21/14 Cyclobenzaprine HCl [Flexeril -] 10 mg PO TID #21 tablet 07/27/17 Anemia: No Asthma: Yes (NO RECENT ATTACK) Cancer: No Cardiac Disorders: No CVA: No COPD: No CHF: No Dementia: No Diabetes: No GI Disorders: Yes (ACID REFLUX,COLON POLYP) Disorders: No HTN: Yes Hypercholesterolemia: No Liver Disease: No Seizures: No Thyroid Disease: No - Surgical History Abdominal Surgery: No Appendectomy: No Cardiac Surgery: No Cholecystectomy: No Lung Surgery: No Neurologic Surgery: No Orthopedic Surgery: Yes (LEFT ROTATOR CUFF,RIGHT SHOULDER SURGERY) - Immunization History Immunization Up to Date: Yes - Suicide/Smoking/Psychosocial Hx Smoking Status: No Smoking History: Never smoked Have you smoked in the past 12 months: No Number of Cigarettes Smoked Daily: 0 Cigars Per Day: 0 Hx Alcohol Use: No Drug/Substance Use Hx: No Substance Use Type: None Hx Substance Use Treatment: No Review of Systems - Review of Systems Able to Perform ROS?: Yes Constitutional: No: Symptoms Reported HEENTM: No: Symptoms Reported Respiratory: No: Symptoms reported Cardiac (ROS): No: Symptoms Reported ABD/GI: No: Symptoms Reported Musculoskeletal: Yes: Back Pain, Neck Pain, Joint Stiffness (cervical spine stiffness) Neurological: Yes: Paresthesia (left hand) *Physical Exam - Vital Signs Last Vital Signs Temp Pulse Resp BP Pulse Ox 98.1 F 78 18 135/81 99 07/27/17 13:09 07/27/17 13:09 07/27/17 13:09 07/27/17 13:09 07/27/17 13:09 - Physical Exam Comments: 62 y/o female, older looking than her stated age, ambulatory to the ER, in NAD but in moderate obvious discomfort. Patient moves her entire body to turn her head. General Appearance: Yes: Nourished, Appropriately Dressed, Obese HEENT: positive: EOMI, ERICA, Normal ENT Inspection Neck: positive: Tender, Rigid, Decreased range of motion (Cervical spine is stiff), Tender lateral (Very tender left cervical paravertebral muscles with muscle spasming) Extremity: positive: Normal Capillary Refill, Normal Range of Motion Neurologic: positive: second class welder II-XII NML intact, Fully Oriented, Motor Strength 5/5 (b/l UEs.), Finger to Nose (normal). negative: Facial Droop, Numbness Medical Decision Making - Medical Decision Making A/P: 62 y/o female with cervical radiculopathy and resultant left cervical muscle spasm with torticollis. Plan is as follows: 1. IM toradol 2. PO flexeril Will discharge to home with rx for flexeril. Suggested she take along with motrin and informed her it may make her drowsy. Suggested she f/u with her neuro surgeon next week and return to the ER with any worsening or concerning symptoms. The patient verbalizes understanding of all instructions, has no further questions and is awaiting discharge. *DC/Admit/Observation/Transfer Diagnosis at time of Disposition: Cervical radiculopathy, Torticollis - Discharge Dispostion Disposition: HOME Condition at time of disposition: Good - Referrals Referrals: Evans Stone MD [Primary Care Provider] - Jonas Morton MD, FAANS [Staff Physician] - (Call saturday) Luis Manuel Bay MD [Staff Physician] - (call saturday) - Patient Instructions Printed Discharge Instructions: DI for Cervical Radiculopathy Additional Instructions: Discharge Instructions: -Continue taking Motrin every 6 hours for pain/inflammation -A prescription for a muscle relaxer has been sent to your pharmacy; please take with motrin; it may cause drowsiness -Call your neuro surgeon on saturday for follow up -Return to the ER with any worsening or concerning symptoms - Post Discharge Activity
[2017-07-27] MEDS ORDERED: KETOROLAC TROMETHAMINE 60 MG/2 ML VIAL IM ONE (14:44)
[2017-07-27] MEDS ORDERED: CYCLOBENZAPRINE HCL 5 MG TABLET PO SCH (14:45)
[2017-07-27] MEDS ORDERED: CYCLOBENZAPRINE HCL 10 MG TABLET (FP) ONE (14:46)
[2017-07-27] MEDS ORDERED: KETOROLAC TROMETHAMINE 60 MG/2 ML VIAL ONE (14:46)
== END 2017-07-27 15:12 | disposition home or self-care (01) ==
LOC: JERFT 12:57
PROC: 3E0233Z Introduction of Anti-inflammatory into Muscle, Percutaneous Approach (ICD-10-PCS; principal; 2017-07-27)
DX: M54.12 Radiculopathy, cervical region (principal); M43.6 Torticollis; I10 Essential (primary) hypertension; Z87.09 Personal history of other diseases of the respiratory system; Z87.19 Personal history of other diseases of the digestive system
CPT/HCPCS: 99281-25

== ENCOUNTER 2017-12-03 21:27 | Observation (INO) | payer OTHER ==
[2017-12-03 21:52] VITALS: BMI 36.9
--- NOTE | 2017-12-03 21:52 | PDOC ---
Rapid Medical Evaluation Time Seen by Provider: 12/03/17 21:47 Medical Evaluation: Allergies Allergy/AdvReac Type Severity Reaction Status Date / Time No Known Drug Allergies Allergy Verified 07/27/17 13:08 12/03/17 21:47 Pt presents to the ED c/o neck pain with numbness and tingling down to the L arm. Pt had cervical disc fusion by Dr. Michael mckenzie 4 months ago. Pain got worse today. States that the pain moves into her chest Exam Pt in c-collar. Able to move both extremities. No gross neuro deficits. Breathing easily Orders: EKG, CBC, CMP, Cardiac profile, Pt to proceed to ED for further evaluation Discharge Disposition - Diagnosis Neck pain on left side - Referrals - Patient Instructions - Post Discharge Activity
--- NOTE | 2017-12-04 00:43 | PDOC ---
History of Present Illness - General History Source: Patient Exam Limitations: No Limitations - History of Present Illness Initial Comments: 12/04/17 01:13 The patient is a 62 year old female with a significant PMH of hypertension and asthma who presents to the emergency department with severe neck pain. The patient describes her neck pain as persistent. The patient reports that she recently had cervical surgery with Dr. Rodriguez 4 months ago. The patient reports associated left arm numbness . the patient reports taking tylenol with no relief. The patient denies any fever, chills, nausea, vomiting, diarrhea or urinary symptoms. She denies any trauma, headache, dizziness, chest pain r SOB. the patient denies any other complaints. PCP: Dr. Stone <Al Tsai - Last Filed: 12/04/17 01:13> - General History Source: Patient <Sekou Bernabe - Last Filed: 12/04/17 02:58> - General Chief Complaint: Pain Stated Complaint: PAIN Time Seen by Provider: 12/03/17 21:47 Past History <Al Tsai - Last Filed: 12/04/17 01:13> - Past Medical History Anemia: No Asthma: Yes (NO RECENT ATTACK) COPD: No GI Disorders: Yes (ACID REFLUX,COLON POLYP) HTN: Yes - Surgical History Orthopedic Surgery: Yes (LEFT ROTATOR CUFF,RIGHT SHOULDER SURGERY) - Immunization History Immunization Up to Date: Yes - Suicide/Smoking/Psychosocial Hx Smoking Status: No Smoking History: Never smoked Have you smoked in the past 12 months: No Number of Cigarettes Smoked Daily: 0 Cigars Per Day: 0 Information on smoking cessation initiated: No Hx Alcohol Use: No Drug/Substance Use Hx: No Substance Use Type: None Hx Substance Use Treatment: No <Sekou Bernabe - Last Filed: 12/04/17 02:58> - Past Medical History Allergies/Adverse Reactions: Allergies Allergy/AdvReac Type Severity Reaction Status Date / Time No Known Drug Allergies Allergy Verified 12/03/17 21:49 Home Medications: Ambulatory Orders Omeprazole Magnesium [Prilosec Otc] 20 mg PO PRN PRN 08/02/17 Acetaminophen [Tylenol .Regular Strength -] 650 mg PO Q6H PRN tablet 08/09/17 Docusate Sodium [Colace -] 300 mg PO HS capsule 08/09/17 Heparin - 5,000 unit SQ Q8H-IV vial 08/09/17 Losartan Potassium [Cozaar -] 50 mg PO DAILY tablet 08/09/17 oxyCODONE HCL [Roxicodone -] 5 mg PO Q4H PRN tablet MDD 4 08/09/17 Cyclobenzaprine HCl [Flexeril -] 10 mg PO BID tablet 08/12/17 Ketorolac Tromethamine [Toradol -] 10 mg PO TID tablet 08/12/17 Pantoprazole Sodium [Protonix -] 40 mg PO BID tablet.ec 08/12/17 Polyethylene Glycol 3350 [Miralax 119 gm Btl -] 17 gm PO DAILY bottle 08/12/17 Review of Systems - Review of Systems Able to Perform ROS?: Yes Comments:: 12/04/17 01:13 CONSTITUTIONAL: (+) neck pain Absent: fever, chills, diaphoresis, generalized weakness, malaise, loss of appetite HEENT: Absent: rhinorrhea, nasal congestion, throat pain, throat swelling, difficulty swallowing, mouth swelling, ear pain, eye pain, visual Changes CARDIOVASCULAR: Absent: chest pain, syncope, palpitations, irregular heart rate, lightheadedness , peripheral edema RESPIRATORY: Absent: cough, shortness of breath, dyspnea with exertion, orthopnea, wheezing, stridor, hemoptysis GASTROINTESTINAL: Absent: abdominal pain, abdominal distension, nausea, vomiting, diarrhea, constipation, melena, hematochezia GENITOURINARY: Absent: dysuria, frequency, urgency, hesitancy, hematuria, flank pain, genital pain MUSCULOSKELETAL: (+)left arm numbness Absent: myalgia, arthralgia, joint swelling SKIN: Absent: rash, itching, pallor HEMATOLOGIC/IMMUNOLOGIC: Absent: easy bleeding, easy bruising, lymphadenopathy, frequent infections ENDOCRINE: Absent: unexplained weight gain, unexplained weight loss, heat intolerance, cold intolerance NEUROLOGIC: Absent: headache, focal weakness or paresthesias, dizziness, unsteady gait, seizure, mental status changes, bladder or bowel incontinence PSYCHIATRIC: Absent: anxiety, depression, suicidal or homicidal ideation, hallucinations. <Al Tsai - Last Filed: 12/04/17 01:13> *Physical Exam - Vital Signs Last Vital Signs Temp Pulse Resp BP Pulse Ox 98.0 F 64 18 156/87 99 12/03/17 21:49 12/03/17 21:49 12/03/17 21:49 12/03/17 21:49 12/03/17 21:49 - Physical Exam Comments: 12/04/17 01:14 GENERAL: Well developed, well nourished. Awake and alert. No acute distress. HEENT: Normocephalic, atraumatic. PERRLA, EOMI. No conjunctival pallor. Sclera are non- icteric. Moist mucous membranes. Oropharynx is clear. NECK: (+)tenderness bilaterally along surgical wound. Some discomfort mostly at C7T1 junction. Wound is clean, dry and intact. Supple. Full ROM. No JVD. Carotid pulses 2+ and symmetric, without bruits. No thyromegaly. No lymphadenopathy. CARDIOVASCULAR: Regular rate and rhythm. No murmurs, rubs, or gallops. Distal pulses are 2+ and symmetric. PULMONARY: No evidence of respiratory distress. Lungs clear to auscultation bilaterally. No wheezing, rales or rhonchi. ABDOMINAL: Soft. Non-tender. Non-distended. No rebound or guarding. No organomegaly. Normoactive bowel sounds. MUSCULOSKELETAL Normal range of motion at all joints. No bony deformities or tenderness. No CVA tenderness. EXTREMITIES: No cyanosis. No clubbing. No edema. No calf tenderness. SKIN: Warm and dry. Normal capillary refill. No rashes. No jaundice. NEUROLOGICAL: Alert, awake, appropriate. Cranial nerves 2-12 intact. No deficits to light touch and temperature in face, upper extremities and lower extremities. No motor deficits in the in face, upper extremities and lower extremities. Normoreflexic in the upper and lower extremities. Normal speech. Toes are down- going bilaterally. Gait is normal without ataxia. PSYCHIATRIC: Cooperative. Good eye contact. Appropriate mood and affect. <Al Tsai - Last Filed: 12/04/17 01:13> - Vital Signs Last Vital Signs Temp Pulse Resp BP Pulse Ox 98.0 F 64 18 156/87 99 12/03/17 21:49 12/03/17 21:49 12/03/17 21:49 12/03/17 21:49 12/03/17 21:49 <Sekou Bernabe - Last Filed: 12/04/17 02:58> ED Treatment Course - LABORATORY CBC & Chemistry Diagram: 12/04/17 00:56 12/04/17 00:56 <Al Tsai - Last Filed: 12/04/17 01:13> - LABORATORY CBC & Chemistry Diagram: 12/04/17 00:56 12/04/17 00:56 <Sekou Bernabe - Last Filed: 12/04/17 02:58> Medical Decision Making - Medical Decision Making 12/04/17 02:57 Dr. Bernabe: The scribe's documentation has been prepared under my direction and personally reviewed by me in its entirery. I confirm that the note above accurately reflects all work, treatment, procedures, and medical decision making performed by me. Pt still having pain despite treatment. Will admit so that pt can be seen by her pcp and her neurosurgeon <Sekou Bernabe - Last Filed: 12/04/17 02:58> *DC/Admit/Observation/Transfer - Attestations Scribe Attestion: 12/04/17 01:14 Documentation prepared by Al Tsai, acting as general medical practitioner for Sekou Bernabe MD. <Al Tsai - Last Filed: 12/04/17 01:13> - Discharge Dispostion Decision to Admit order: Yes <Sekou Bernabe - Last Filed: 12/04/17 02:58> Diagnosis at time of Disposition: Neck pain on left side, Cervical radiculopathy, Intractable pain - Discharge Dispostion Condition at time of disposition: Stable - Referrals Referrals: Evans Stone MD [Primary Care Provider] - - Patient Instructions - Post Discharge Activity
[2017-12-04] MEDS ORDERED: traMADol HCL 50 MG TABLET PO ONE (00:45)
[2017-12-04 01:08] LABS: BASO % 1.2 % (0-2.0); EOS % 4.8 % (0-4.5); HEMATOCRIT 37.3 % (32.4-45.2); HEMOGLOBIN 12.7 GM/dL (10.7-15.3); LYMPH % 48.6 % (8-40); MCH 29.2 pg (25.7-33.7); MEAN CELL VOLUME 85.7 fl (80-96); MEAN PLT VOLUME 8.3 fl (7.5-11.1); MONO % 8.9 % (3.8-10.2); NEUT % 36.5 % (42.8-82.8); PLATELET COUNT 317 K/MM3 (134-434); RBC 4.35 M/mm3 (3.60-5.2); RDW 13.4 % (11.6-15.6); WHITE BLOOD COUNT 6.8 K/mm3 (4.0-10.0)
[2017-12-04] MEDS ORDERED: traMADol HCL 50 MG TABLET ONE (01:13)
[2017-12-04 01:28] LABS: ALBUMIN 3.3 g/dl (3.4-5.0); ANION GAP 6 (8-16); BILIRUBIN,TOTAL 0.2 mg/dL (0.2-1.0); BLOOD UREA NITROGEN 15 mg/dL (7-18); CALCIUM 8.8 mg/dL (8.5-10.1); CHLORIDE 109 mmol/L (98-107); CO2 28 mmol/L (21-32); CREATININE 0.7 mg/dL (0.55-1.02); GLUCOSE,RANDOM 84 mg/dL (74-106); POTASSIUM 3.9 mmol/L (3.5-5.1); SGOT/AST 15 U/L (15-37); SGPT/ALT 18 U/L (12-78); SODIUM 143 mmol/L (136-145); TOT PROT 7.5 g/dl (6.4-8.2)
[2017-12-04 01:29] LABS: ALK PHOS 92 U/L (45-117)
[2017-12-04] MEDS ORDERED: morphine CARPU-JECT 2 MG/1 ML DISP.SYRIN IVPUSH ONE (02:53)
[2017-12-04] MEDS ORDERED: ONDANSETRON 4 MG/2 ML VIAL IVPUSH STA (02:53)
[2017-12-04] MEDS ORDERED: MORPHINE SULFATE 10 MG/1 ML *VIAL ONE (03:20)
[2017-12-04] MEDS ORDERED: ONDANSETRON 4 MG/2 ML VIAL ONE (03:20)
--- NOTE | 2017-12-04 04:05 | PN ---
Teaching Attending Note Name of Resident: Leila Landon ATTENDING PHYSICIAN STATEMENT I saw and evaluated the patient. I reviewed the resident's note and discussed the case with the resident. I agree with the resident's findings and plan as documented. SUBJECTIVE: Patient is a 62 year old woman with a significant history of hypertension, neck surgeries X 3, and asthma who presents to the emergency department with severe neck pain. The patient describes her neck pain as persistent. The patient reports that she recently had cervical surgery with Dr. Rodriguez 4 months ago. The patient reports associated left arm numbness . the patient reports taking tylenol with no relief. The patient denies any fever, chills, nausea, vomiting, diarrhea or urinary symptoms. She denies any trauma, headache, dizziness, chest pain SOB. the patient denies any other complaints. OBJECTIVE: Alert, obese and in moderate pain Vital Signs Period Temp Pulse Resp BP Sys/Champion Pulse Ox Last 24 Hr 98.0 F 64 18 156/87 99 HEENT: No Jaundice, eye redness or discharge, PERRLA, EOMI. Normocephalic, atraumatic. External ears are normal and hearing is grossly intact. No nasal discharge. Neck: Supple, nontender. No palpable adenopathy or thyromegaly. No JVD Chest: Good effort. Clear to auscultation and percussion. Heart: Regular. No S3, rub or murmur Abdomen: Not distended, soft, nontender and no HSM. No rebound or guarding. Normoactive bowel sounds. Ext: Peripheral pulses intact. Left foot edema. Point tenderness at T1 level. Skin: Warm and dry. No petechiae, rash or ecchymosis. Neuro: Alert. Oriented x3. CN 2-12 grossly intact. Reduced sensation in left arm and limited ROM of left shoulder. Home Medications Medication Instructions Recorded Omeprazole Magnesium [Prilosec Otc] 20 mg PO PRN PRN 08/02/17 Acetaminophen [Tylenol .Regular 650 mg PO Q6H PRN tablet 08/09/17 Strength -] Docusate Sodium [Colace -] 300 mg PO HS capsule 08/09/17 Heparin - 5,000 unit SQ Q8H-IV vial 08/09/17 Losartan Potassium [Cozaar -] 50 mg PO DAILY tablet 08/09/17 oxyCODONE HCL [Roxicodone -] 5 mg PO Q4H PRN tablet MDD 4 08/09/17 Cyclobenzaprine HCl [Flexeril -] 10 mg PO BID tablet 08/12/17 Ketorolac Tromethamine [Toradol -] 10 mg PO TID tablet 08/12/17 Pantoprazole Sodium [Protonix -] 40 mg PO BID tablet.ec 08/12/17 Polyethylene Glycol 3350 [Miralax 17 gm PO DAILY bottle 08/12/17 119 gm Btl -] Abnormal Lab Results 12/04/17 12/04/17 00:56 00:56 Neutrophils % 36.5 L D Lymphocytes % 48.6 H D Eosinophils % 4.8 H D Chloride 109 H Anion Gap 6 L Albumin 3.3 L ASSESSMENT AND PLAN: 1. Cervical/thoracic radiculopathy - Recent EMG showed impinged nerve at T1 level. Patient wants only tylenol for pain control . CT scan of her neck shows changes consistent with her multiple surgeries. CXR is shows no gross abnormalities. Awaiting neurosurgery consult evaluation. 2. Hypertension - Resume home medications and stress a low salt diet. Must strive for normotension. 3. Left foot edema - Etiology unclear. Will get doppler scan of her left leg. 4. DVT prophylaxis - Heparin 5000u sq tid. 5. Advance directives - Full code
--- NOTE | 2017-12-04 05:44 | HP ---
CHIEF COMPLAINT: arm pain and numbness PCP: [facility] HISTORY OF PRESENT ILLNESS: The patient is a 62 year old female with a PMH of cervical spine surgeries x 3, HTN, asthma that presented today complaining of severe pain that is present for the past 4 months (since C4-T1 laminectomy with [facility] of lordosis and posterior fusion ). She states that the pain got worse and decided to come to the hospital. It is 10/10, starts in the back of her neck, radiates to left upper extremity, to all fingers and sometimes to left lower extremity. It is intermittent, sharp in nature. The patient also reports numbness and associated burning. She tried Tylenol without improvement. The patient had EMG done by her Neurologist last week and was told that she had impinged nerve at the level of C7. For the past 4 months she reports balance problems and started using cane. She denies headache, vision problems, urinary incontinence, chest pain, SOB, fever, chills. ER course was notable for: (1)CT c spine and thoracic (2)CXR (3)CMP, CMP PAST MEDICAL HISTORY: as above PAST SURGICAL HISTORY: first anterior cervical fusion in 2007 with 2 discs removed, revision in 2016 with 3 discs removed and C4-T1 posterior fusion in 2018, two shoulder surgeries R and L side, 2011 and 2015 Social History: Smoking:never smoker Alcohol:no Drugs: no Used to work as a nurse school office assistant, currently not working. Dicorced and lives with her children. Family History: Mother; DM Father: Asthma, heart disease Sister and brother : HTN, 4 children healthy Allergies No Known Drug Allergies Allergy (Verified 12/03/17 21:49) HOME MEDICATIONS: Home Medications Medication Instructions Recorded Omeprazole Magnesium [Prilosec Otc] 20 mg PO PRN PRN 08/02/17 Acetaminophen [Tylenol .Regular 650 mg PO Q6H PRN tablet 08/09/17 Strength -] Docusate Sodium [Colace -] 300 mg PO HS capsule 08/09/17 Heparin - 5,000 unit SQ Q8H-IV vial 08/09/17 Losartan Potassium [Cozaar -] 50 mg PO DAILY tablet 08/09/17 oxyCODONE HCL [Roxicodone -] 5 mg PO Q4H PRN tablet MDD 4 08/09/17 Cyclobenzaprine HCl [Flexeril -] 10 mg PO BID tablet 08/12/17 Ketorolac Tromethamine [Toradol -] 10 mg PO TID tablet 08/12/17 Pantoprazole Sodium [Protonix -] 40 mg PO BID tablet.ec 08/12/17 Polyethylene Glycol 3350 [Miralax 17 gm PO DAILY bottle 08/12/17 119 gm Btl -] REVIEW OF SYSTEMS CONSTITUTIONAL: Absent: fever, chills, diaphoresis, generalized weakness, malaise, loss of appetite, weight change HEENT: Absent: rhinorrhea, nasal congestion, throat pain, throat swelling, difficulty swallowing, mouth swelling, CARDIOVASCULAR: Absent: chest pain, syncope, palpitations, irregular heart rate, lightheadedness , peripheral edema RESPIRATORY: Absent: cough, shortness of breath, dyspnea with exertion, orthopnea, wheezing, GASTROINTESTINAL: Absent: abdominal pain, abdominal distension, nausea, vomiting, diarrhea, constipation, GENITOURINARY: Absent: dysuria, frequency, urgency, hesitancy, hematuria, flank pain, genital pain MUSCULOSKELETAL: neck pain and left arm pain Absent: myalgia, arthralgia, joint swelling, back pain, SKIN: Absent: rash, itching, pallor HEMATOLOGIC/IMMUNOLOGIC: Absent: easy bleeding, easy bruising, lymphadenopathy, frequent infections ENDOCRINE: Absent: unexplained weight gain, unexplained weight loss, heat intolerance, cold intolerance NEUROLOGIC: weakness, paresthesias in LUE Absent: headache, dizziness, unsteady gait, seizure, mental status changes, bladder or bowel incontinence PSYCHIATRIC: Absent: anxiety, depression PHYSICAL EXAMINATION Vital Signs - 24 hr 12/03/17 21:49 Temperature 98.0 F Pulse Rate 64 Respiratory 18 Rate Blood Pressure 156/87 O2 Sat by Pulse 99 Oximetry (%) GENERAL: Awake, alert, and fully oriented, in mild distress, lying in bed. HEAD: Normal with no signs of trauma. EYES: Pupils equal, round and reactive to light, extraocular movements intact, sclera anicteric, conjunctiva clear. EARS, NOSE, THROAT: Oropharynx clear without exudates. Moist mucous membranes. NECK: Normal range of motion, supple without lymphadenopathy, JVD, or masses. LUNGS: Breath sounds equal, clear to auscultation bilaterally. No wheezes, and no crackles. No accessory muscle use. HEART: Regular rate and rhythm, normal S1 and S2 without murmur, rub or gallop. ABDOMEN: Obese, soft, nontender, not distended, normoactive bowel sounds, no guarding, no rebound, no masses. MUSCULOSKELETAL: Limited ROM in left shoulder, point tenderness at T1 level- posterior neck. UPPER EXTREMITIES: No peripheral edema. LOWER EXTREMITIES: 2+ pulses, peripheral edema in left foot, no peripheral edema in right foot, no tenderness to palpation in left foot and normal ROM in both feet. NEUROLOGICAL: No facial asymmetry, no slurred speech, LUE 4/5, all other extremities 5/5, sensation decreased in LUE, gait not observed. PSYCHIATRIC: Cooperative. Good eye contact. Appropriate mood and affect. SKIN: Warm, dry, normal turgor, no rashes, longitudinal scar post surgery in the back of the neck, horizontal 2 cm scar in anterior neck. Laboratory Results - last 24 hr 12/04/17 12/04/17 00:56 00:56 WBC 6.8 RBC 4.35 Hgb 12.7 Hct 37.3 MCV 85.7 MCH 29.2 MCHC 34.0 RDW 13.4 Plt Count 317 D MPV 8.3 Absolute Neuts (auto) 2.5 Neutrophils % 36.5 L D Lymphocytes % 48.6 H D Monocytes % 8.9 Eosinophils % 4.8 H D Basophils % 1.2 Nucleated RBC % 0 Sodium 143 Potassium 3.9 Chloride 109 H Carbon Dioxide 28 Anion Gap 6 L BUN 15 Creatinine 0.7 Creat Clearance w eGFR > 60 Random Glucose 84 Calcium 8.8 Total Bilirubin 0.2 AST 15 ALT 18 Alkaline Phosphatase 92 Total Protein 7.5 Albumin 3.3 L ASSESSMENT/PLAN: The patient is a 62 year old female with a PMH of cervical spine surgeries x 3, HTN, asthma that presented today complaining of severe pain that is present for the past 4 months. She is admitted for intractable neck pain for surgical evaluation. Intractable neck pain: -it is related to multiple surgeries, radiculopathy, impingement nerve -will consult Neurosurgeon -pain control with Tylenol 650 mg Q4h -consider MRI HTN: -controlled -continue Losartan 50 mg qd Swelling of left foot: -unknown etiology, no trauma -f/u Dupplex Asthma: -stable, not on home meds DVT PPX: -Heparin sq -scds F/E/N: no/no changes/low Na Dispo: med surg obs Problem List - Problem (1) Cervical radiculopathy Code(s): M54.12 - RADICULOPATHY, CERVICAL REGION (2) Intractable pain Code(s): R52 - PAIN, UNSPECIFIED (3) Neck pain on left side Code(s): M54.2 - CERVICALGIA (4) HTN (hypertension) Code(s): I10 - ESSENTIAL (PRIMARY) HYPERTENSION (5) Obesity Code(s): E66.9 - OBESITY, UNSPECIFIED Visit type - Emergency Visit Emergency Visit: Yes ED Registration Date: 12/04/17 Care time: The patient presented to the Emergency Department on the above date and was hospitalized for further evaluation of their emergent condition. - New Patient This patient is new to me today: Yes Date on this admission: 12/04/17 - Critical Care Critical Care patient: No Hospitalist Screening - Colonoscopy Questionnaire Colonoscopy Questionnaire: Colonoscopy Questionnaire - Patient: 50 - 75 years old and never had a screening colonoscopy: Unknown History of colon or rectal polyps, or CA: Unknown History of IBD, Crohn's disease or UC: Unknown History of abdominal radiation therapy as a child: Unknown - Relative: 1 with colon or rectal CA, or polyps at age 60 or younger: Unknown Colon or rectal CA diagnosed at age 45 or younger: Unknown Multiple relatives with colon or rectal CA: Unknown - Outcome: Screening Result: Negative Screen
[2017-12-04] MEDS ORDERED: PATIENT'S OWN MEDICATION (NON-FORMULARY) (Omeprazole Magnesium [Prilosec Otc] 20 MG) PO PRN (05:45)
[2017-12-04] MEDS: LOSARTAN POTASSIUM 50 MG TABLET (FP) PO SCH (10:07)
[2017-12-04] MEDS: ACETAMINOPHEN 325 MG TABLET (FP) PO PRN (12:25)
--- NOTE | 2017-12-04 12:58 | EKG ---
Test Reason : Blood Pressure : / mmHG Vent. Rate : 064 BPM Atrial Rate : 064 BPM P-R Int : 162 ms QRS Dur : 072 ms QT Int : 366 ms P-R-T Axes : 050 014 021 degrees QTc Int : 377 ms SINUS RHYTHM WITH MARKED SINUS ARRHYTHMIA OTHERWISE NORMAL ECG WHEN COMPARED WITH ECG OF 08-AUG-2017 12:53, CRITERIA FOR INFERIOR INFARCT ARE NO LONGER PRESENT QT HAS SHORTENED Confirmed by ABDI TEJADA, FANI ([id number]) on 12/04/2017 12:58:25 PM Referred By: Confirmed By:FANI PATTON MD
[2017-12-04] MEDS: traMADol HCL 50 MG TABLET PO PRN (17:05)
[2017-12-04 23:34] LABS: URINE APPEARANCE CLEAR; URINE BILIRUBIN NEGATIVE (<2.0 mg/dL); URINE COLOR YELLOW; URINE GLUCOSE (UA) NEGATIVE (NEGATIVE); URINE KETONE NEGATIVE (NEGATIVE); URINE LEUK ESTERASE NEGATIVE (NEGATIVE); URINE NITRITE NEGATIVE (NEGATIVE); URINE PROTEIN NEGATIVE (NEGATIVE)
[2017-12-05] MEDS: traMADol HCL 50 MG TABLET PO PRN ×3 (03:27→17:13)
[2017-12-05] MEDS: LOSARTAN POTASSIUM 50 MG TABLET (FP) PO SCH (09:39)
--- NOTE | 2017-12-05 09:55 | PN ---
Physical Exam: SUBJECTIVE: Patient seen and examined. States her pain is mildly improved with tramadol, however the feeling of burning and pinched tenderness in her neck continues and goes down her left leg. OBJECTIVE: Vital Signs Period Temp Pulse Resp BP Sys/Champion Pulse Ox Last 24 Hr 97.7 F-98.3 F 59-77 17-18 91-154/60-94 94 PE Neuro: alert, awake, cn 2-12intact 5/5 motor, 4/5 sensation LLE LUE numbness HEENT: hard cervical collar, posterior cervical tenderness to palpation incision cdi Pulm: CTAB CV: s1 s2 rrr no mrg Abd: s nt nd + bs Ext: warm, trace left pedal edema Laboratory Results - last 24 hr 12/04/17 23:21 Urine Color Yellow Urine Appearance Clear Urine pH 5.0 Ur Specific Blanco 1.025 Urine Protein Negative Urine Glucose (UA) Negative Urine Ketones Negative Urine Blood Negative Urine Nitrite Negative Urine Bilirubin Negative Urine Urobilinogen 2.0 H Ur Leukocyte Esterase Negative Active Medications Generic Name Dose Route Start Last Admin Trade Name Narayanq PRN Reason Stop Dose Admin Acetaminophen 650 mg 12/04/17 04:48 12/04/17 12:25 Tylenol - PO 650 mg Q4H PRN Administration MODERATE PAIN Losartan Potassium 50 mg 12/04/17 10:00 12/05/17 09:39 Cozaar - PO 50 mg DAILY ESTEPHANIA Administration Tramadol HCl 50 mg 12/04/17 15:05 12/05/17 09:39 Ultram - PO 50 mg Q6H PRN Administration PAIN LEVEL 6-10 Assessment: 62 year old woman with a significant history of hypertension, neck surgeries X 3, and asthma who presents to the emergency department with severe neck pain. Plan: 1. Cervical/thoracic radiculopathy - Recent EMG showed impinged nerve at T1 level - Continue Tramadol q6 prn - Neurosurgery eval pending 2. Hypertension - Losartan 50mg daily 3. Left foot edema - DVT doppler negative - Pt has referred pain to this ext 4. DVT prophylaxis - Heparin 5000u sq tid. Visit type - Emergency Visit Emergency Visit: Yes ED Registration Date: 12/04/17 Care time: The patient presented to the Emergency Department on the above date and was hospitalized for further evaluation of their emergent condition. - New Patient This patient is new to me today: Yes Date on this admission: 12/05/17 - Critical Care Critical Care patient: No
[2017-12-05] MEDS: ACETAMINOPHEN 325 MG TABLET (FP) PO PRN (13:22)
[2017-12-06] MEDS: traMADol HCL 50 MG TABLET PO PRN ×2 (01:52→08:26)
[2017-12-06] MEDS: LOSARTAN POTASSIUM 50 MG TABLET (FP) PO SCH (09:16)
--- NOTE | 2017-12-06 11:34 | DS ---
Physical Exam: SUBJECTIVE: Patient seen and examined OBJECTIVE: Vital Signs Period Temp Pulse Resp BP Sys/Champion Pulse Ox Last 24 Hr 97.7 F-98.2 F 59-66 18-22 104-121/64-77 94 PHYSICAL EXAM GENERAL: The patient is awake, alert, and fully oriented, in no acute distress. HEAD: Normal with no signs of trauma. EYES: PERRL, extraocular movements intact, sclera anicteric, conjunctiva clear. ENT: Ears normal, nares patent, oropharynx clear without exudates, moist mucous membranes. NECK: Trachea midline, full range of motion, supple. LUNGS: Breath sounds equal, clear to auscultation bilaterally, no wheezes, no crackles, no accessory muscle use. HEART: Regular rate and rhythm, S1, S2 without murmur, rub or gallop. ABDOMEN: Soft, nontender, nondistended, normoactive bowel sounds, no guarding, no rebound, no hepatosplenomegaly, no masses. EXTREMITIES: 2+ pulses, warm, well-perfused, no edema. NEUROLOGICAL: Cranial nerves II through XII grossly intact. Normal speech, gait not observed. PSYCH: Normal mood, normal affect. SKIN: Warm, dry, normal turgor, no rashes or lesions noted. LABS HOSPITAL COURSE: Date of Admission:12/04/17 Date of Discharge: 12/06/17 Discharge Summary Reason For Visit: NECK PAIN ON LEFT SIDE,CERVICAL RADICULOPATHY Current Active Problems Cervical radiculopathy (Acute) Intractable pain (Acute) Neck pain on left side (Acute) Condition: Stable - Instructions Diet, Activity, Other Instructions: Please return to the ED for any new, persistent, or worsening symptoms. Follow up with your PCP in 1 week Take home medications as directed Take pain medication as needed, make appt to see Dr. Morton in office next week Referrals: Evans Stone MD [Primary Care Provider] - Jonas Morton MD, FA[facility] [Staff Physician] - Disposition: HOME - Home Medications Comprehensive Discharge Medication List: Ambulatory Orders Omeprazole Magnesium [Prilosec Otc] 20 mg PO PRN PRN 08/02/17 Acetaminophen [Tylenol .Regular Strength -] 650 mg PO Q6H PRN tablet 08/09/17 Losartan Potassium [Cozaar -] 50 mg PO DAILY tablet 08/09/17 traMADol HCL [Ultram -] 50 mg PO Q6H PRN #20 tablet MDD 4 12/06/17
[2017-12-06 13:57] VITALS: BP 130/81; PULSE 60; TEMP 97.9
== END 2017-12-06 13:56 | disposition home or self-care (01) ==
LOC: JER 21:27 → JERBED 12-04 02:55 → J5S 12-04 08:39
PROVIDERS: ADMIT Internal Medicine; ATTEND Nurse Practitioner Acute Care
PROC: 3E033NZ Introduction of Analgesics, Hypnotics, Sedatives into Peripheral Vein, Percutaneous Approach (ICD-10-PCS; principal; 2017-12-04)
PROC: 3E033GC Introduction of Other Therapeutic Substance into Peripheral Vein, Percutaneous Approach (ICD-10-PCS; 2017-12-04)
DX: M54.12 Radiculopathy, cervical region (principal); M54.2 Cervicalgia; R60.0 Localized edema; I10 Essential (primary) hypertension; J45.909 Unspecified asthma, uncomplicated; K21.9 Gastro-esophageal reflux disease without esophagitis; E66.9 Obesity, unspecified; Z68.36 Body mass index [BMI] 36.0-36.9, adult; Z79.01 Long term (current) use of anticoagulants
CPT/HCPCS: 36415; 71045-TC-FY; 72125-TC; 72128-TC; 80053; 81003; 85025; 93005; 93010; 93970-TC; 99283-25; G0378

== ENCOUNTER 2017-12-28 05:18 | Emergency (ER) | payer OTHER ==
--- NOTE | 2017-12-28 05:31 | PDOC ---
History of Present Illness - General Chief Complaint: Pain, Acute Stated Complaint: NECK & SHOULDER PAIN Time Seen by Provider: 12/28/17 05:30 History Source: Patient Exam Limitations: No Limitations - History of Present Illness Initial Comments: Pt, with PMH of HTN and cervical fusion (C4-C6, laminectomy C4-C7 by Dr. Morton), presents with L-sided neck pain. The pt states she has limited motion in her neck, L-sided neck and shoulder pain, and weakness and loss of sensation of the L arm and L leg. 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 She received surgery in July 2017. Over the past few weeks, the pt states her pain has been worsening and has been radiating down her L arm. She was taking Ultram and Tylenol for pain which relieved the symptoms, but she has run out of the Ultram. She has an appointment to see Dr. Briscoe for neurology follow-up in 3 weeks. She has been attending PT since September with limited relief of her symptoms. She came to the ED due to worsening pain of the L neck and worsening weakness of the L arm. Pt states her HTN is normally well-controlled with Losartan 50 mg PO. It has been increased over the last few weeks due to pain. 12/28/17 05:52 EMG results (done by Dr. Briscoe, referred by Dr. Bay), showed sub-acute radiculopathy C6-C7. 12/28/17 06:14 Past History - Travel Traveled outside of the country in the last 30 days: No Close contact w/someone who was outside of country & ill: No - Past Medical History Allergies/Adverse Reactions: Allergies Allergy/AdvReac Type Severity Reaction Status Date / Time No Known Drug Allergies Allergy Verified 12/28/17 05:52 Home Medications: Ambulatory Orders Acetaminophen [Tylenol .Regular Strength -] 650 mg PO Q6H PRN tablet 08/09/17 Losartan Potassium [Cozaar -] 50 mg PO DAILY tablet 08/09/17 Anemia: No Asthma: Yes (NO RECENT ATTACK) COPD: No GI Disorders: Yes (ACID REFLUX,COLON POLYP) HTN: Yes - Surgical History Orthopedic Surgery: Yes (LEFT ROTATOR CUFF,RIGHT SHOULDER SURGERY) - Immunization History Immunization Up to Date: Yes - Suicide/Smoking/Psychosocial Hx Smoking Status: No Smoking History: Never smoked Have you smoked in the past 12 months: No Number of Cigarettes Smoked Daily: 0 Cigars Per Day: 0 Information on smoking cessation initiated: No Hx Alcohol Use: No Drug/Substance Use Hx: No Substance Use Type: None Hx Substance Use Treatment: No Review of Systems - Review of Systems Able to Perform ROS?: Yes Is the patient limited [place] proficient: No Constitutional: Yes: Weight Stable. No: Chills, Diaphoresis, Fever, Loss of Appetite HEENTM: No: Recent change in vision, Hearing Loss, Difficulty Swallowing Respiratory: No: Cough, Orthopnea, Shortness of Breath Cardiac (ROS): Yes: Lightheadedness (Lightheaded and increased neck pain with sitting forward). No: Chest Pain, Edema ABD/GI: No: Constipated, Diarrhea, Nausea, Poor Appetite, Poor Fluid Intake, Vomiting, Other (no loss of BM control) : No: Burning, Dysuria, Frequency, Incontinence, Pain Musculoskeletal: Yes: Back Pain (pain in spine from neck to lower back. worse with movement. ), Joint Swelling (LLE swelling), Neck Pain, Joint Stiffness ( Stiffness of L side of neck and shoulder) Integumentary: No: Bruising, Rash Neurological: Yes: Headache (Posterior headache with neck cramping), Numbness, Paresthesia, Pre-Existing Deficit (LUE and LLE numbness and weakness since laminectomy ). No: Tingling, Dizziness Psychiatric: No: Change in Appetite Endocrine: No: Change in Weight Hematologic/Lymphatic: No: Anemia, Blood Clots All Other Systems: Reviewed and Negative *Physical Exam - Vital Signs Last Vital Signs Temp Pulse Resp BP Pulse Ox 97.6 F 78 20 158/95 99 12/28/17 05:28 12/28/17 05:28 12/28/17 05:28 12/28/17 05:28 12/28/17 05:28 - Physical Exam General Appearance: Yes: Nourished, Appropriately Dressed, Mild Distress (Able to sit comfortably in bed, pain with movement) HEENT: positive: EOMI, Normal ENT Inspection, Normal Voice, Symmetrical, Pharynx Normal, Hearing Grossly Normal Neck: positive: Tender (Cervical tenderness to palpation), Trachea midline, Supple, Decreased range of motion (decreased neck flexion, extension, and rotation). negative: Rigid Respiratory/Chest: positive: Lungs Clear, Normal Breath Sounds. negative: Chest Tender, Respiratory Distress, Accessory Muscle Use Cardiovascular: positive: Regular Rhythm, Regular Rate. negative: Edema, JVD, Murmur Vascular Pulses: Dorsalis-Pedis (R): 4+, Doralis-Pedis (L): 4+ Gastrointestinal/Abdominal: positive: Normal Bowel Sounds, Flat, Soft, Other ( protuberant abdomen). negative: Tender, Organomegaly, Pulsatile Mass Lymphatic: negative: Adenopathy Musculoskeletal: positive: Decreased Range of Motion (Limited flexion and knee and feet, worse in LLE). negative: CVA Tenderness Extremity: positive: Normal Capillary Refill, Normal Inspection, Other ( decreased extension at L knee and ankle). negative: Normal Range of Motion, Swelling Integumentary: positive: Normal Color, Dry, Warm. negative: Rash Neurologic: positive: rn hemo dialysis II-XII NML intact, Fully Oriented, Alert, Normal Mood/ Affect, Normal Response, Motor Strength 5/5 (decreased strength L hand and arm) , Numbness, Sensory Deficit (decreased sensation L arm and L leg) Medical Decision Making - Medical Decision Making Pt seen at bedside by Dr. Diop and Dr. Rodriges. Pt vitals are stable and she is able to sit comfortably in bed. Provided Toradol 60 IM, and Flexeril 10 mg PO. Will reassess for pt pain. 12/28/17 06:06 Pt pain moderately improved. Pt has slightly increased range of motion and less stiffness in L neck and shoulder. 12/28/17 06:50 *DC/Admit/Observation/Transfer Diagnosis at time of Disposition: Neck pain on left side, Muscle spasm - Discharge Dispostion Disposition: HOME Condition at time of disposition: Improved Decision to Admit order: No - Referrals - Patient Instructions Printed Discharge Instructions: DI for Chronic Neck Pain Additional Instructions: Please follow-up with your primary care doctor to discuss better pain control, and keep your appointment with Dr. Briscoe in neurology. Please return if you have worsening pain, fevers/chills, nausea/vomiting, inability to tolerate food or fluids, or any other concerns. - Post Discharge Activity
--- NOTE | 2017-12-28 05:32 | PDOC ---
Attending Attestation - Resident Resident Name: JadonEmily - ED Attending Attestation I have performed the following: I have examined & evaluated the patient, The case was reviewed & discussed with the resident, I agree w/resident's findings & plan - HPI HPI: 12/28/17 05:47 Pt comes with chronic pain. - Physicial Exam PE: 12/28/17 05:46 Agree with resident exam - Medical Decision Making 12/29/17 00:52 Pt stable for discharge home. No need for labs or imaging. 12/29/17 00:53 Pt was treated with analgesia in the ER and she will follow with her PMD and neurology for her pain
[2017-12-28 05:35] VITALS: BMI 36.9
[2017-12-28] MEDS ORDERED: KETOROLAC TROMETHAMINE 60 MG/2 ML VIAL IM ONE (06:02)
[2017-12-28] MEDS ORDERED: METHOCARBAMOL 500 MG TABLET PO ONE (06:02)
[2017-12-28] MEDS ORDERED: KETOROLAC TROMETHAMINE 60 MG/2 ML VIAL ONE (06:05)
[2017-12-28] MEDS ORDERED: CYCLOBENZAPRINE HCL 10 MG TABLET (FP) ONE (06:11)
[2017-12-28 07:31] VITALS: BP 138/82; PULSE 80; TEMP 98.2
[2017-12-28] MEDS ORDERED: CYCLOBENZAPRINE HCL 5 MG TABLET PO SCH (10:00)
== END 2017-12-28 07:29 | disposition home or self-care (01) ==
LOC: JER 05:18
PROC: 3E0233Z Introduction of Anti-inflammatory into Muscle, Percutaneous Approach (ICD-10-PCS; principal; 2017-12-28)
DX: M54.2 Cervicalgia (principal); M62.838 Other muscle spasm; X50.0XXS Overexertion from strenuous movement or load, sequela; Y92.122 Bedroom in nursing home as the place of occurrence of the external cause; Y99.0 Civilian activity done for income or pay; I10 Essential (primary) hypertension; K21.9 Gastro-esophageal reflux disease without esophagitis; Z86.010 Personal history of colon polyps
CPT/HCPCS: 99283-25